=== PATIENT | male | born 1945 | race Caucasian/White ===

== ENCOUNTER 2017-02-27 21:18 | Inpatient (IN) | payer OTHER ==
[~2017-02-27] VITALS: Ht 180.3 cm; Wt 78.2 kg
--- NOTE | 2017-02-27 23:25 | DIAGNOSTIC IMAGING REPORT ---
PROCEDURE: XR HIP 2VW W W/O AP PELVIS-LT INDICATION: TRAUMA/INJURY TECHNIQUE: AP view of the pelvis and hips with lateral view of the left hip. COMPARISON: None. FINDINGS: LEFT HIP: Normal mineralization. Impacted, mildly comminuted femoral neck fracture resulting in varus deformity of the hip. Femoral acetabular joint remains in anatomic position. Mild to moderate degenerative sclerosis and cystic changes to the acetabulum. Vascular phleboliths are present. PELVIS: Normal mineralization. No pelvic fracture. Normal bony alignment. Moderate degenerative disc change at L5-S1. Mild degenerative right hip osteoarthritic change. Vascular phleboliths present. Normal soft tissues. IMPRESSION: 1. Left femoral neck fracture resulting and left hip varus deformity. 2. 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
--- NOTE | 2017-02-27 23:28 | DIAGNOSTIC IMAGING REPORT ---
PROCEDURE: XR CHEST 1 VIEW INDICATION: Fall, left hip fracture TECHNIQUE: Single view chest. 2259 hours COMPARISON: None FINDINGS: Normal heart size and mediastinum. No central venous congestion. Clear lungs. No effusion or pneumothorax. Intact osseous structures with mild degenerative change. There is a vascular stent in the right upper quadrant, potentially a TIPS shunt. Partially imaged metallic coils are present in the region of the GE junction, probably coiled varices. IMPRESSION: 1. No acute cardiopulmonary disease. 2. Findings suggestive of TIPS shunt and previous esophageal varicosity coiling, together implying hepatic cirrhosis and portal hypertension.
[2017-02-28] VITALS (11 sets, daily range): BP systolic 139–155; BP diastolic 47–75
--- NOTE | 2017-02-28 00:05 | ED CLINICAL REPORT ---
Clinical Report - Physicians/Mid Levels [facility] [address] [place] [address] 02/27/2017 21:20 Patient: SANDRA PRICE Time Seen: 22:22. Arrived- By private vehicle. Historian- patient. HISTORY OF PRESENT ILLNESS Location of injuries- left hip. Chief Complaint: FALL. The injury occurred today. Fell. Occurred at home. ( the patient was trying to empty a elias from an air-conditioner. He spilled some water accidentally slipped and fell landing on his left hip. He had pain there and was not able to get up. An ambulance was called and the medics assisted him into his bed. He later rolled out of his bed and again the floor. He reports severe pain in his left hip and says that he is not able to stand on as he usually would. Normally he walks with a cane or a walker.). The patient complains of severe pain. No blow to the head, neck pain or loss of consciousness. REVIEW OF SYSTEMS No chills, fever, sweats, calf pain or chest pain. No cough, difficulty breathing, pedal edema, palpitations or abdominal pain. No constipation, diarrhea, nausea or urinary problems. All systems otherwise negative, except as recorded above. PAST HISTORY Recovered alcoholic with a prior history of ascites and subsequent TIPS he placement. Problems: Hypertension. Alcoholic Liver Disease. Neuropathy. Additional Surgeries: Tips procedure. Medications: Thiamine HCl Oral (Tablet 100 mg) 1 tablet, Daily. Folic Acid Oral (Tablet 1 mg) 1 tablet, daily. Magnesium Oral (Capsule 400 mg) 2 capsules, 2x a day. Cipro Oral (Tablet 500 mg) 1 tablet, daily. Tamsulosin HCl Oral (Capsule 0.4 mg) 1 capsule, daily. Simethicone Oral (Tablet Chewable 80 mg) 1 tablet, tid. Xifaxan Oral (Tablet 550 mg) 1 tablet, BID. Gabapentin Oral (Capsule 300 mg) 1 capsule, at bedtime. Pantoprazole Sodium Oral (Tablet Delayed Release 40 mg) 1 tablet, 2x a day. Allergies: Ampicillin. Definite Severe(rash) Diovan. Definite Severe(rash). SOCIAL HISTORY Never smoker. Alcohol use. Last drink was 5 years ago. Patient is a recovering alcoholic. No drug use. He lives with spouse. Has good social support. FAMILY HISTORY Denies family medical history. ADDITIONAL NOTES The nursing notes have been reviewed. PHYSICAL EXAM Vital Signs: 02/27/2017 21:26 BP: 152/63. HR: 81. RR: 18. O2 saturation: 96%. Temp: 98.5 F. Pain level now: 04/14. Have been reviewed. Appearance: Alert. Head: Head non-tender. No swelling of head. Eyes: Pupils equal, round and reactive to light. ENT: Pharynx normal. Neck: Painless ROM. Non-tender. CVS: Heart sounds normal. Respiratory: Breath sounds normal. Abdomen: Soft and nontender. Bowel sounds normal. No organomegaly. No mass. Back: No tenderness. Skin: Skin warm and dry. Extremities: Left hip: moderate tenderness. Limited ROM secondary to pain (diminished flexion, extension and external and internal rotation). LABS, X-RAYS, AND EKG EKG: Normal EKG. Rate: 69. Prior EKG unavailable. The study has been independently viewed by me. Chest X-ray: (IMPRESSION: 1. No acute cardiopulmonary disease. 2. Findings suggestive of TIPS shunt and previous esophageal varicosity coiling, together implying hepatic cirrhosis and portal hypertension.). The X-rays were interpreted by the radiologist and contemporaneously by me. Laboratory Tests: UA-Culture if indicated: (ANU: 02/27/2017 22:38) ( MsgRcvd 02/27/2017 22:59) Final results Test Result Flag Units (Reference) URINE COLOR YELLOW URINE APPEARANCE CLEAR URINE GLUCOSE NEGATIVE (NEGATIVE) URINE BILIRUBIN NEGATIVE (NEGATIVE) URINE KETONE NEGATIVE (NEGATIVE) URINE SPECIFIC GRAVITY 1.015 (1.010-1.030) URINE PH 6.5 (5.0-8.0) URINE PROTEIN NEGATIVE (NEGATIVE) URINE UROBILINOGEN 0.2 EU/dL (0.2-1.0) URINE NITRITE NEGATIVE (NEGATIVE) URINE BLOOD NEGATIVE (NEGATIVE) URINE LEUK ESTERASE NEGATIVE (NEGATIVE) URINE RBC 0-1 rbc/hpf (0-1) URINE WBC 0-1 wbc/hpf (0-1) URINE EPITHELIAL CELLS 0-1 EPI/hpf (0-5) URINE BACTERIA NONE SEEN (NONE SEEN) URINE COMMENT CULT NOT INDICATED URINE CULTURES ARE SET-UP BASED ON THE FOLLOWING CRITERIA:POSITIVE NITRITEPOSITIVE LEUKOCYTE ESTERASEGREATER THAN 10 WHITE BLOOD CELLSMODERATE (2+) OR GREATER BACTERIA CBC w Diff: (ANU: 02/27/2017 22:38) ( [facility] 02/27/2017 22:51) Final results Test Result Flag Units (Reference) WHITE BLOOD COUNT 7.7 K/uL (4.5-11.5) RED BLOOD COUNT 3.45 L M/uL (4.50-5.90) HEMOGLOBIN 11.4 L gm/dL (13.5-17.5) HEMATOCRIT 34.2 L % (41.0-53.0) MEAN CELL VOLUME 99 fL (80-100) MEAN CORPUSCULAR HGB 33 pg (26-34) MEAN CORPUSCULAR HGB CONC 33 g/dL (31-37) RED CELL DISTRIBUTION WIDTH 15.9 H % (11.6-14.8) PLATELET COUNT 132 L K/uL (150-400) LYMPH % 23.2 L % (25-40) MONO % 3.8 % (3-14) GRANULOCYTE % 73.0 PT with INR: (ANU: 02/27/2017 22:38) ( [facility] 02/27/2017 23:00) Final results Test Result Flag Units (Reference) INR 1.2 (0.8-1.2) Low Intensity Therapy: INR 1.5-2.0 PT range 18.5-23.1Mod.Intensity Therapy: INR 2.0-3.0 PT range 23.1-31.5High Intensity Therapy: INR 2.5-3.5 PT range 27.4-35.5High Intensity Therapy 2: INR 3.0-4.0 PT range 31.5-39.3 APTT 34 SECONDS (24-34) CMP: (ANU: 02/27/2017 22:38) ( [facility] 02/27/2017 23:01) Final results Test Result Flag Units (Reference) GLUCOSE 113 H mg/dL (70-110) BUN 21 H mg/dL (7-18) CREATININE 1.1 mg/dL (0.6-1.3) Estimated GFR >60 mL/min Estimated GFR- >60 mL/min Note: Persistent reduction over 3 months in eGFR<60 mL/min/1.73 m2 defines CKD. Patients with eGFR values>=60 mL/min/1.73 m2 may also have CKD if evidence ofpersistent proteinuria. Additional information may be foundat www.kidney.org. SODIUM 145 mmol/L (136-145) POTASSIUM 4.3 mmol/L (3.5-5.1) CHLORIDE 106 mmol/L (98-107) CARBON DIOXIDE 30 mmol/L (21-32) CALCIUM 9.3 mg/dL (8.5-10.1) TOTAL PROTEIN 6.4 g/dL (6.4-8.2) ALBUMIN 3.1 L g/dL (3.3-5.0) BILIRUBIN, TOTAL 1.9 H mg/dL (0.0-1.0) ALKALINE PHOSPHATASE 101 U/L (46-116) AST (SGOT) 61 H U/L (15-37) ALT (SGPT) 39 U/L (12-78) LIPASE 54 L U/L (73-393) AMYLASE 29 U/L (25-115) . PROGRESS AND PROCEDURES Discussed case with hospitalist, (Alexandra). Reviewed test results and need for additional work-up. Agreed upon treatment plan, need for patient follow-up and decision to admit. Consult obtained from orthopedics. Dr. Boogie. Case discussed. Consultation performed in ED. Old medical records ordered. Old records unavailable. Disposition: Admitted. CLINICAL IMPRESSION Fracture of the neck of the left femur. Fall. (Electronically signed by Mohan Millan MD 02/28/2017 11:23)
--- NOTE | 2017-02-28 00:06 | ED NURSING NOTES ---
Clinical Report - Nurses [facility] [address] [place] [address] 02/27/2017 21:20 Patient: SANDRA PRICE TRIAGE Triage time 21:27. Acuity: LEVEL 3. Chief Complaint: FALL OUT OF BED, onto a hard surface and landed on their back. --21:41 Josefina Summers R.N. 21:26 02/27/17. BP: 152/63 taken on the left arm, while lying. HR: 81 (regular and normal rate). RR: 18 (regular and unlabored). O2 saturation: 96% on room air. Temp: 98.5 F (oral). Pain level now: 04/14. --21:41 Josefina Summers R.N. Weight: 70.3 kg stated. Height/Length: 71 inches Per Patient. BMI: 21.6. --21:29 Josefina Summers R.N. Medications Pantoprazole Sodium Oral (Tablet Delayed Release 40 mg) 1 tablet, 2x a day. --21:35 Josefina Summers R.N. Gabapentin Oral (Capsule 300 mg) 1 capsule, at bedtime. --21:36 Josefina Summers R.N. Xifaxan Oral (Tablet 550 mg) 1 tablet, BID. --21:36 Josefina Summers R.N. Simethicone Oral (Tablet Chewable 80 mg) 1 tablet, tid. --21:36 Josefina Summers R.N. Tamsulosin HCl Oral (Capsule 0.4 mg) 1 capsule, daily. --21:36 Josefina Summers R.N. Cipro Oral (Tablet 500 mg) 1 tablet, daily. --21:36 Josefina Summers R.N. Magnesium Oral (Capsule 400 mg) 2 capsules, 2x a day. --21:37 Josefina Summers R.N. Folic Acid Oral (Tablet 1 mg) 1 tablet, daily. --21:37 Melina, Josefina, R.N. Thiamine HCl Oral (Tablet 100 mg) 1 tablet, Daily. --21:37 Josefina Summers R.N. Allergies Ampicillin. Definite Severe(rash) --21:38 Josefina Summers R.N. Diovan. Definite Severe(rash) --21:38 Josefina Summers R.N. History Arrived by EMS. Historian: patient. Location of injuries: left hip. This occurred (about 2 hours ago). ( pt reports falling out of bed 2 times today 2 nd time being 2 hours ago, c/o pain to left hip and leg). He has had trouble walking. The patient has been unable to walk. He uses a walker and cane. Treatment [facility]: None. PAST MEDICAL HX: Tetanus status: unknown. Immunizations: up-to-date. SOCIAL HX: Never smoker. Alcohol use. Last drink was 5 years ago. Patient is a recovering alcoholic. No drug use. No infectious disease exposure. ABUSE ASSESSMENT: No report of abuse. SELF HARM ASSESSMENT: A self harm assessment was performed. The patient answered "no" to the question "Have you recently felt down, depressed, or hopeless?", "Have you noticed less interest or pleasure in doing things?", "Do you have thoughts of harming or killing yourself?", "Are you here because you tried to hurt yourself?", "Have you ever tried to hurt yourself before today?", "Have you recently had thoughts about harming or killing others?" and "Do you have any dangerous items in your possession?". NUTRITIONAL RISK ASSESSMENT: The nutritional risk assessment revealed no deficiencies. FUNCTIONAL ASSESSMENT: Functional assessment: no impairments noted. LEARNING NEEDS ASSESSMENT: The learning needs assessment revealed no barriers. FALL RISK ASSESSMENT: Fall risk assessment completed. Risk factors identified include patient age greater than 65 years and history of fall. SKIN INTEGRITY ASSESSMENT: Skin integrity risk assessment completed. No skin integrity risk identified. --21:41 Josefina Summers R.N. PROBLEMS: Hypertension. Alcoholic Liver Disease. Neuropathy. --21:39 Josefina Summers R.N. ADDITIONAL SURGERIES: Tips procedure. --21:39 Josefina Summers R.N. Interventions ID band on patient. To treatment room. --21:41 Josefina Summers R.N. PHYSICAL ASSESSMENT To room via stretcher. GENERAL / NEURO / PSYCH: Alert. Oriented X 4. Appears in pain. HEENT: Pupils equal, round and reactive to light. Head non-tender. RESPIRATORY: Respirations not labored. Chest nontender. Breath sounds within normal limits. CVS: Normal heart rate and rhythm. Pulses within normal limits. Capillary refill less than 2 seconds. GI / : Abdomen soft and nontender. EXTREMITIES: Limited ROM present in the left lower leg. He was unable to bear weight. (left lower ext). Left hip. Limited ROM secondary to pain. The left leg is externally rotated. SKIN: Skin intact. Skin is warm and dry. --21:42 Josefina Summers R.N. NURSING PROGRESS NOTES Two patient identifiers checked. Call light placed in reach. Side rails up x 2. Bed placed in lowest position. Brakes of bed on. Patient ready for evaluation- chart flagged. --21:42 Josefina Summers R.N. 22:38 02/27/2017 Site #1 started via IV in the right antecubital space with an 20g angiocath, with aseptic technique and good blood return; one attempt. Blood drawn: rainbow set. Labeled in the presence of the patient and sent to the lab. Saline lock flushed with 10 mL saline. --22:44 Josefina Summers R.N. ( pt transported back from [facility] by [facility]). --23:09 [facility] 00:16 02/28/2017 Zofran (Ondansetron HCl) IVP 4 mg given over 2 minute(s) via site #1. Allergies verified and confirmed 5 rights. IV patency established. IV site checked: no pain, redness, or swelling. IV flushed thoroughly pre- and post-medication administration. --00:21 Angel Robles R.N. 00:18 02/28/2017 Dilaudid (HYDROmorphone HCl PF) IVP 0.5 mg given over 2 minute(s) via site #1. Allergies verified, confirmed 5 rights and sedative warning given to the patient and patient's family. IV patency established. IV site checked: no pain, redness, or swelling. IV flushed thoroughly pre- and post-medication administration. --00:21 Angel Robles R.N. 00:21 02/28/17. BP: 132/45. HR: 71. RR: 17. O2 saturation: 87%. --00:23 Angel Robles R.N. 00:21. Pulse oximeter and NIBP monitor placed on patient; monitor alarms on. --00:23 Angel Robles R.N. 00:23. Oxygen administered by nasal cannula at 3 liters. --00:24 Angel Robles R.N. 00:24 02/28/17. O2 saturation: 97% on nasal cannula at 3 liters/minute. --00:24 Angel Robles R.N. Overall patient status is improved- he states feels better. GENERAL / NEURO / PSYCH: The patient reports pain that is located in the pelvis area and left hip is still present but improving and currently mild in severity. Alert. Oriented X 4. RESPIRATORY: No respiratory distress. Two patient identifiers checked. Call light placed in reach. Side rails up x 1. Bed placed in lowest position. Brakes of bed on. --00:52 Josefina Summers R.N. 00:51 02/28/17. BP: 111/63 taken on the left arm, while lying. HR: 101 (regular and tachycardic). RR: 18 (regular and unlabored). O2 saturation: 96% on nasal cannula at 3 liters/minute. Temp: deferred. Pain level now: 4/10. --00:52 Josefina Summers R.N. EKG time: (00:49). EKG was performed by a tech and shown to the ED physician. --00:54 Sarah Jamison 02:47 02/28/2017 IV Saline Lock Drip IV Continued: upon admission at the rate of 0 mL/hr. 0 mL remaining. IV patency established. IV site checked: no pain, redness, or swelling. IV flushed thoroughly. --02:47 Josefina Summers R.N. 02:48 02/28/2017 Site #[address] upon admission; patent, no pain and no signs of infection or infiltration. Good blood return present. Flushed with 10 mL saline; flushes easily. --02:48 Josefina Summers R.N. DISPOSITION / DISCHARGE Departure time: 02:52. Transported via stretcher by nurse with IV. Report was given to a nurse via a phone call. Report included patient's care, treatment, medications, reviewed medication reconcilliation, and condition (including any recent changes or anticipated changes). All questions were answered. Report was acknowledged and care was transferred. (Josie RN @[phone]). Patient's personal items; items were placed in belongings bag and transported with the patient. --02:53 Josefina Summers R.N. 02:49 02/28/17. BP: 131/86 taken on the left arm, while lying. HR: 66 (regular and normal rate). RR: 18. O2 saturation: 100% on nasal cannula at 3 liters/minute. Temp: deferred. Pain level now: 0/10. --02:53 Josefina Summers R.N. Locked/Released at 02/28/2017 2:53 by Josefina Summers R.N.
--- NOTE | 2017-02-28 00:06 | ED ORDER SUMMARY ---
..... Patient: SANDRA PRICE OrderSheet [facility] VisitID: [id number] [place] [address] 72y, M Registration Date/Time: 02/27/2017 ORDER SHEET Weight: 70.3 kg (stated) Allergies: Ampicillin, Diovan GENERAL ORDERS: Hip 2V Left w AP Pelvis Urgent (22:28 02/27/2017 Kenyetta GARCIA) (Ack 22:30 [facility] [employer] [facility]) (23:08 Lee Ann) Chest 1V Urgent (22:28 02/27/2017 Kenyetta GARCIA) (Ack 22:30 [facility] [employer]) (23:08 Lee Ann) CBC w Diff Urgent (22:29 02/27/2017 Kenyetta GARCIA) (Ack 22:30 [facility] [employer]) (22:44 CBradburn R.N.) CMP Urgent (22:29 02/27/2017 Kenyetta GARCIA) (Ack 22:30 [facility] [employer]) (22:44 CBradburn R.N.) PT with INR Urgent (22:29 02/27/2017 Kenyetta GARCIA) (Ack 22:30 [facility] [employer]) (22:44 CBradburn R.N.) PTT Urgent (22:29 02/27/2017 Kenyetta GARCIA) (Ack 22:30 [facility] [employer]) (22:44 CBradburn R.N.) UA-Culture if indicated Urgent (22:29 02/27/2017 Kenyetta GARCIA) (Ack 22:30 [facility] [employer]) (22:44 CBradburn R.N.) Amylase Urgent (22:29 02/27/2017 Kenyetta GARCIA) (Ack 22:30 [facility] [employer]) (22:44 CBradburn R.N.) Lipase Urgent (22:29 02/27/2017 Kenyetta GARCIA) (Ack 22:30 [facility] [employer]) (22:44 CBradburn R.N.) Ammonia Level Urgent (00:09 02/28/2017 Kenyetta GARCIA) (Ack 0:10 CHagyordy [facility] [employer] Maker) (1:18 CBradburn R.N.) EKG - ER Stat (00:36 02/28/2017 Kenyetta GARCIA) (0:53 RKaruga) MEDICATION ORDERS: IV FLUIDS: IV Saline Lock (22:29 02/27/2017 Kenyetta GARCIA) (22:44 Aj R.N.) Dilaudid IV 0.5 mg (HIGH ALERT MEDICATION, NOW) (00:14 02/28/2017 Kenyetta GARCIA) (0:21 Therese R.N.) Zofran IV 4 mg (NOW) (00:15 02/28/2017 Kenyetta GARCIA) (0:21 JQuivedoroteo R.N.) ORDER SHEET NOTES: [Electronically signed by Josefina Summers R.N. (02:53 02/28/2017)] [Electronically signed by Mohan Millan MD (11:23 02/28/2017)] [Electronically locked/signed by Josefina Summers R.N. (02:53 02/28/2017)]
--- NOTE | 2017-02-28 00:06 | ED ORDER SUMMARY ---
..... Patient: SANDRA PRICE OrderSheet [facility] VisitID: [id number] [place] [address] 72y, M Registration Date/Time: 02/27/2017 ORDER SHEET Weight: 70.3 kg (stated) Allergies: Ampicillin, Diovan GENERAL ORDERS: Hip 2V Left w AP Pelvis Urgent (22:28 02/27/2017 Kenyetta GARCIA) (Ack 22:30 [facility] [employer]) (23:08 Lee Ann) Chest 1V Urgent (22:28 02/27/2017 Kenyetta GARCIA) (Ack 22:30 [facility] [employer]) (23:08 Lee Ann) CBC w Diff Urgent (22:29 02/27/2017 Kenyetta GARCIA) (Ack 22:30 [facility] [employer]) (22:44 CBradburn R.N.) CMP Urgent (22:29 02/27/2017 Kenyetta GARCIA) (Ack 22:30 [facility] [employer]) (22:44 CBradburn R.N.) PT with INR Urgent (22:29 02/27/2017 Kenyetta GARCIA) (Ack 22:30 [facility] [employer]) (22:44 CBradburn R.N.) PTT Urgent (22:29 02/27/2017 Kenyetta GARCIA) (Ack 22:30 [facility] [employer]) (22:44 CBradburn R.N.) UA-Culture if indicated Urgent (22:29 02/27/2017 Kenyetta GARCIA) (Ack 22:30 [facility] [employer]) (22:44 CBradburn R.N.) Amylase Urgent (22:29 02/27/2017 Kenyetta GARCIA) (Ack 22:30 [facility]ette [facility] [employer]) (22:44 CBradburn R.N.) Lipase Urgent (22:29 02/27/2017 Kenyetta GARCIA) (Ack 22:30 [facility]ette [facility] [employer]) (22:44 CBradburn R.N.) Ammonia Level Urgent (00:09 02/28/2017 Kenyetta GARCIA) (Ack 0:10 CHag[place]y [facility] [employer]) (1:18 CBradburn R.N.) EKG - ER Stat (00:36 02/28/2017 Kenyetta GARCIA) (0:53 RKaruga) MEDICATION ORDERS: IV FLUIDS: IV Saline Lock (22:29 02/27/2017 Kenyetta GARCIA) (22:44 Aj R.N.) Dilaudid IV 0.5 mg (HIGH ALERT MEDICATION, NOW) (00:14 02/28/2017 Kenyetta GARCIA) (0:21 Therese R.N.) Zofran IV 4 mg (NOW) (00:15 02/28/2017 Kenyetta GARCIA) (0:21 JQuivedoroteo R.N.) ORDER SHEET NOTES: [Electronically signed by Josefina Summers R.N. (02:53 02/28/2017)] [Electronically signed by Mohan Millan MD (11:23 02/28/2017)] [Electronically locked/signed by Josefina Summers R.N. (02:53 02/28/2017)]
--- NOTE | 2017-02-28 01:39 | Progress Note ---
Subjective General Admission History and Physical Examination Patient Name: Kofi Burnett Admission Date: February 28, 2017 Primary Care Provider: [facility] Attending Physician: Riccardo Beaver M.D. Admitting Physician: Jesu Morris M.D. Director Strategic Planning: Fredrick Boogie M.D. Code Status: NO CODE Room: [facility] Status: Inpatient, ACU SUBJECTIVE Historian: Patient and friend Reliability: Fair Chief Complaint: Left hip pain History of Present Illness: The patient is a 72-year-old white male with a significant past medical history of alcoholic cirrhosis, gastroesophageal reflux, alcoholic polyneuropathy, hypertension, BPH, who presented to [facility] emergency department on the day of admission secondary to complaints of fall with left hip pain. [facility] ER evaluation was consistent with subtrochanteric fracture left hip. Dr. Fredrick Boogie ( orthopedics) was contacted and requested the patient be admitted by the hospitalist service. Secondary to the above, the patient was admitted by Jesu Morris M.D. for further evaluation and treatment. The history of present illness began on the day of admission when the patient apparently slipped in some liquid falling on his left hip. He was apparently placed back in bed and fell out of bed later in the day prompting ER evaluation secondary to inability to ambulate and left hip pain. [facility] ER evaluation was consistent with left hip fracture. Orthopedics was consult and and requested that the patient be admitted by the hospitalist service with orthopedic consultation. Secondary to the above, the patient was admitted by Jesu Morris M.D. for further evaluation and treatment. The patient denied any history of syncope, loss of consciousness prior to his falls. No recent history of chest pain, palpitations, shortness of breath. PAST MEDICAL HISTORY Illnesses: 1. Alcoholic cirrhosis 2. Alcohol peripheral neuropathy 3. Gastroesophageal reflux 4. Hypertension 5. BPH 6. Atopic dermatitis Allergies: 1. Prednisone 2. Diovan Medications: 1. Protonix 40 mg 1 by mouth daily 2. Gabapentin 300 mg by mouth daily 3. Rifaximin 550 mg by mouth 3 times a day 4. Simethicone 80 mg by mouth 3 times a day 5. Flomax 0.4 mg by mouth daily 6. Ciprofloxacin 500 mg by mouth daily 7. Magnesium oxide 400 mg 1 by mouth twice a day 8. Folic acid 1 mg by mouth daily 9. Thiamine 100 mg by mouth daily 10. Eucerin cream topically twice a day to affected skin Surgery: 1. 2013, TIPS procedure 2. 2011, left ankle fracture Injuries: 1. 2011, left leg fracture Hospitalizations: 1. For above surgery and medical problems FAMILY HISTORY Parents: 1. Father, , 87, "old age", 2. Mother, , 87, "old age" Siblings: 1. The patient has 2 male siblings one with history of diabetes mellitus for with history of fractured neck Children: 1. The patient has 2 female children both of which are in good health Other significant family history: None SOCIAL HISTORY 1. Marital Status: Single-other 2. Orthodoxy: Latter Day-Sikh 3. Education: High school, 2 years of college 4. Employment History: , retired-[employer], [employer] 5. Occupational health exposures: Loud noises, heavy lifting HABITS 1. Tobacco: None 2. Drugs: None 3. Alcohol: History of alcoholism, nondrinker many years 4. Caffeine: Coffee 3 cups per day HEALTH SUPERVISION Item/Test 1. Vision screen: 2015 2. Cholesterol Profile: 2016 3. PSA: Unknown 4. MULU: Unknown 5. FOBT: 2016 6. Blood Glucose: 2016 7. Colonoscopy: Unknown 8. History and physical exam: Unknown 9. Audiogram: 2015 10. Mammogram: Not applicable 11. Pap/pelvic exam: Not applicable IMMUNIZATIONS: 1. Pneumococcal: 2014 2. Influenza: 2015 3. Tetanus: Unknown ADVANCED DIRECTIVES: 1. Living well: No 2. POLST: No 3. Code Status: NO CODE 4. Durable Power Studio Director Health care: Yes 5. Donor card: No REVIEW OF SYSTEMS Remarkable for those things stated in the history of present illness and past medical history. Seventeen point review of system completed with the following notable findings: General: Abdominal pain, weakness Skin, atopic dermatitis Eyes: Decreased visual acuity requiring corrective lenses Ears: Hearing loss, lateral hearing aids Mouth: Dental problems Cardiovascular: Hypertension, pain with ambulation Genitourinary: Poor urinary stream, erectile dysfunction Gastrointestinal: Loss of appetite, gastroesophageal reflux, heartburn, constipation Musculoskeletal: Joint stiffness Psychological: Depression Physical Exam Vital Signs / I&Os Blood pressure: 152/63 mmHg Heart rate: 81/minute Respiratory rate: 18/minute Temperature: 98.5 Fahrenheit orally Pulse oximetry: 96% room air General Appearance Cooperative, No acute distress HEENT Atraumatic, PERRLA, EOMI, Moist mucous membranes Lungs Clear to auscultation, Normal air movement Neck Supple, No JVD, No masses, No thyromegaly, No lymphadenopathy Cardiovascular Regular rate and rhythm, Normal S1 and S2, No murmurs, gallops, rubs Abdomen Normal bowel sounds, Soft, No tenderness, No guarding Extremities No cyanosis, No clubbing, Normal pulses Skin Dermatitis present Neurological Cranial nerves intact, Strength 5/5 x4 ext's, No lateralizing signs Psych/Mental Status Mood normal, slightly lethrgic LAB Results Laboratory Tests 02/28 02/27 0055 2238 Chemistry Plasma Sodium (136 - 145 mmol/L) 145 Plasma Potassium (3.5 - 5.1 mmol/L) 4.3 Plasma Chloride (98 - 107 mmol/L) 106 CO2 (Enzymatic) (21 - 32 mmol/L) 30 BUN (7 - 18 mg/dL) 21 Creatinine (0.6 - 1.3 mg/dL) 1.1 Est GFR ( Amer) (mL/min) >60 Est GFR (Non-Af Amer) (mL/min) >60 Glucose (70 - 110 mg/dL) 113 Plasma Calcium (8.5 - 10.1 mg/dL) 9.3 Total Bilirubin (0.0 - 1.0 mg/dL) 1.9 AST (15 - 37 U/L) 61 ALT (12 - 78 U/L) 39 Alkaline Phosphatase (46 - 116 U/L) 101 Ammonia Pending Total Protein (6.4 - 8.2 g/dL) 6.4 Albumin (3.3 - 5.0 g/dL) 3.1 Amylase (25 - 115 U/L) 29 Lipase (73 - 393 U/L) 54 Coagulation INR (0.8 - 1.2) 1.2 APTT (24 - 34 SECONDS) 34 Hematology WBC (4.5 - 11.5 K/uL) 7.7 RBC (4.50 - 5.90 M/uL) 3.45 Hgb (13.5 - 17.5 gm/dL) 11.4 Hct (41.0 - 53.0 %) 34.2 MCV (80 - 100 fL) 99 MCH (26 - 34 pg) 33 RDW (11.6 - 14.8 %) 15.9 Gran % 73.0 Lymph % (Auto) (25 - 40 %) 23.2 [place] % (Auto) (3 - 14 %) 3.8 Plt Count, EDTA (150 - 400 K/uL) 132 PUBS MCHC (31 - 37 g/dL) 33 Urines Urine Color YELLOW Urine Appearance CLEAR Urine pH (5.0 - 8.0) 6.5 Ur Specific [place] (1.010 - 1.030) 1.015 Urine Protein (NEGATIVE) NEGATIVE Urine Ketones (NEGATIVE) NEGATIVE Urine Blood (NEGATIVE) NEGATIVE Urine Nitrite (NEGATIVE) NEGATIVE Urine Bilirubin (NEGATIVE) NEGATIVE Urine Urobilinogen (0.2 - 1.0 EU/dL) 0.2 Ur Leukocyte Esterase (NEGATIVE) NEGATIVE Urine RBC (0 - 1 rbc/hpf) 0-1 Urine WBC (0 - 1 wbc/hpf) 0-1 Ur Epithelial Cells (0 - 5 EPI/hpf) 0-1 Urine Bacteria (NONE SEEN) NONE SEEN Urine Glucose (NEGATIVE) NEGATIVE Urine Comment CULT NOT INDICATED Imaging Chest X-Ray IMPRESSION: 1. No acute cardiopulmonary disease. 2. Findings suggestive of TIPS shunt and previous esophageal varicosity coiling, together implying hepatic cirrhosis and portal hypertension. Dictated by: RAMIRO MCGINNIS MD D: SOTERO;02/27/17 1624 Hip X-Ray IMPRESSION: 1. Left femoral neck fracture resulting and left hip varus deformity. 2. 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 Dictated by: RAMIRO MCGINNIS MD D: SOTERO;02/27/17 0376 Assessment and Plan Problem List 1. Fracture of femoral neck, left Status Acute Onset Date 02/27/17 Plan -The patient presents with femoral neck fracture left side -Follow per orthopedics -Dr. Fredrick Boogie consulted-see his consultation note 2. Alcoholic cirrhosis of liver Status Chronic Onset Date Unknown Plan -Patient with history of alcoholic cirrhosis -Status post TIPS procedure -Overall status stable recently -Ammonia level slightly elevated -Continue rifaximin consider addition of lactulose if necessary -No overt evidence of hepatic encephalopathy at this time -Monitor 3. BPH (benign prostatic hyperplasia) Status Chronic Onset Date Unknown Plan -Patient with history of BPH -No complaints at this time -Continue Flomax 0.4 mg by mouth daily -Monitor for urinary retention 4. Alcoholic peripheral neuropathy Status Chronic Onset Date Unknown Plan -Long-standing history of alcoholic polyneuropathy -Continue gabapentin 300 mg by mouth daily at bedtime -Monitor 5. Gastroesophageal reflux Status Chronic Onset Date Unknown Plan -Patient with history of gastroesophageal reflux -Pepcid 20 mg IV twice a day -Monitor Current status: Fair, unstable Anticipated discharge date: Anticipated discharge 4-5 days Anticipated discharge placement: [facility] facility Patient care time: Time in chart review, patient interview, physical exam, CPOE, and care documentation: 70 mins Visit to patient today: 2 Complexity of care: High DVT prophylaxis: Heparin 5000 units subcutaneous 3 times a day GI prophylaxis: Pepcid 20 mg IV twice a day E&M Codes Admission: Inpt-High/88115
--- NOTE | 2017-02-28 01:39 | Progress Note ---
Subjective General Admission History and Physical Examination Patient Name: Kofi Burnett Admission Date: February 28, 2017 Primary Care Provider: [facility] Attending Physician: Riccardo Beaver M.D. Admitting Physician: Jesu Morris M.D. Rodding Machine Tender: Fredrick Boogie M.D. Code Status: NO CODE Room: [facility] Status: Inpatient, ACU SUBJECTIVE Historian: Patient and friend Reliability: Fair Chief Complaint: Left hip pain History of Present Illness: The patient is a 72-year-old white male with a significant past medical history of alcoholic cirrhosis, gastroesophageal reflux, alcoholic polyneuropathy, hypertension, BPH, who presented to [facility] emergency department on the day of admission secondary to complaints of fall with left hip pain. [facility] ER evaluation was consistent with subtrochanteric fracture left hip. Dr. Fredrick Boogie ( orthopedics) was contacted and requested the patient be admitted by the hospitalist service. Secondary to the above, the patient was admitted by Jesu Morris M.D. for further evaluation and treatment. The history of present illness began on the day of admission when the patient apparently slipped in some liquid falling on his left hip. He was apparently placed back in bed and fell out of bed later in the day prompting ER evaluation secondary to inability to ambulate and left hip pain. [facility] ER evaluation was consistent with left hip fracture. Orthopedics was consult and and requested that the patient be admitted by the hospitalist service with orthopedic consultation. Secondary to the above, the patient was admitted by Jesu Morris M.D. for further evaluation and treatment. The patient denied any history of syncope, loss of consciousness prior to his falls. No recent history of chest pain, palpitations, shortness of breath. PAST MEDICAL HISTORY Illnesses: 1. Alcoholic cirrhosis 2. Alcohol peripheral neuropathy 3. Gastroesophageal reflux 4. Hypertension 5. BPH 6. Atopic dermatitis Allergies: 1. Prednisone 2. Diovan Medications: 1. Protonix 40 mg 1 by mouth daily 2. Gabapentin 300 mg by mouth daily 3. Rifaximin 550 mg by mouth 3 times a day 4. Simethicone 80 mg by mouth 3 times a day 5. Flomax 0.4 mg by mouth daily 6. Ciprofloxacin 500 mg by mouth daily 7. Magnesium oxide 400 mg 1 by mouth twice a day 8. Folic acid 1 mg by mouth daily 9. Thiamine 100 mg by mouth daily 10. Eucerin cream topically twice a day to affected skin Surgery: 1. 2013, TIPS procedure 2. 2011, left ankle fracture Injuries: 1. 2011, left leg fracture Hospitalizations: 1. For above surgery and medical problems FAMILY HISTORY Parents: 1. Father, , 87, "old age", 2. Mother, , 87, "old age" Siblings: 1. The patient has 2 male siblings one with history of diabetes mellitus for with history of fractured neck Children: 1. The patient has 2 female children both of which are in good health Other significant family history: None SOCIAL HISTORY 1. Marital Status: Single-other 2. Baptism: [employer]ze-[employer]ar[employer] 3. Education: High school, 2 years of college 4. Employment History: , retired-[employer], [employer] 5. Occupational health exposures: Loud noises, heavy lifting HABITS 1. Tobacco: None 2. Drugs: None 3. Alcohol: History of alcoholism, nondrinker many years 4. Caffeine: Coffee 3 cups per day HEALTH SUPERVISION Item/Test 1. Vision screen: 2015 2. Cholesterol Profile: 2016 3. PSA: Unknown 4. MULU: Unknown 5. FOBT: 2016 6. Blood Glucose: 2016 7. Colonoscopy: Unknown 8. History and physical exam: Unknown 9. Audiogram: 2015 10. Mammogram: Not applicable 11. Pap/pelvic exam: Not applicable IMMUNIZATIONS: 1. Pneumococcal: 2014 2. Influenza: 2015 3. Tetanus: Unknown ADVANCED DIRECTIVES: 1. Living well: No 2. POLST: No 3. Code Status: NO CODE 4. Durable Power Certified Nursing Assistant Health care: Yes 5. Donor card: No REVIEW OF SYSTEMS Remarkable for those things stated in the history of present illness and past medical history. Seventeen point review of system completed with the following notable findings: General: Abdominal pain, weakness Skin, atopic dermatitis Eyes: Decreased visual acuity requiring corrective lenses Ears: Hearing loss, lateral hearing aids Mouth: Dental problems Cardiovascular: Hypertension, pain with ambulation Genitourinary: Poor urinary stream, erectile dysfunction Gastrointestinal: Loss of appetite, gastroesophageal reflux, heartburn, constipation Musculoskeletal: Joint stiffness Psychological: Depression Physical Exam Vital Signs / I&Os Blood pressure: 152/63 mmHg Heart rate: 81/minute Respiratory rate: 18/minute Temperature: 98.5 Fahrenheit orally Pulse oximetry: 96% room air General Appearance Cooperative, No acute distress HEENT Atraumatic, PERRLA, EOMI, Moist mucous membranes Lungs Clear to auscultation, Normal air movement Neck Supple, No JVD, No masses, No thyromegaly, No lymphadenopathy Cardiovascular Regular rate and rhythm, Normal S1 and S2, No murmurs, gallops, rubs Abdomen Normal bowel sounds, Soft, No tenderness, No guarding Extremities No cyanosis, No clubbing, Normal pulses Skin Dermatitis present Neurological Cranial nerves intact, Strength 5/5 x4 ext's, No lateralizing signs Psych/Mental Status Mood normal, slightly lethrgic LAB Results Laboratory Tests 02/28 02/27 0055 2238 Chemistry Plasma Sodium (136 - 145 mmol/L) 145 Plasma Potassium (3.5 - 5.1 mmol/L) 4.3 Plasma Chloride (98 - 107 mmol/L) 106 CO2 (Enzymatic) (21 - 32 mmol/L) 30 BUN (7 - 18 mg/dL) 21 Creatinine (0.6 - 1.3 mg/dL) 1.1 Est GFR ( Amer) (mL/min) >60 Est GFR (Non-Af Amer) (mL/min) >60 Glucose (70 - 110 mg/dL) 113 Plasma Calcium (8.5 - 10.1 mg/dL) 9.3 Total Bilirubin (0.0 - 1.0 mg/dL) 1.9 AST (15 - 37 U/L) 61 ALT (12 - 78 U/L) 39 Alkaline Phosphatase (46 - 116 U/L) 101 Ammonia Pending Total Protein (6.4 - 8.2 g/dL) 6.4 Albumin (3.3 - 5.0 g/dL) 3.1 Amylase (25 - 115 U/L) 29 Lipase (73 - 393 U/L) 54 Coagulation INR (0.8 - 1.2) 1.2 APTT (24 - 34 SECONDS) 34 Hematology WBC (4.5 - 11.5 K/uL) 7.7 RBC (4.50 - 5.90 M/uL) 3.45 Hgb (13.5 - 17.5 gm/dL) 11.4 Hct (41.0 - 53.0 %) 34.2 MCV (80 - 100 fL) 99 MCH (26 - 34 pg) 33 RDW (11.6 - 14.8 %) 15.9 Gran % 73.0 Lymph % (Auto) (25 - 40 %) 23.2 [place] % (Auto) (3 - 14 %) 3.8 Plt Count, EDTA (150 - 400 K/uL) 132 PUBS MCHC (31 - 37 g/dL) 33 Urines Urine Color YELLOW Urine Appearance CLEAR Urine pH (5.0 - 8.0) 6.5 Ur Specific [place] (1.010 - 1.030) 1.015 Urine Protein (NEGATIVE) NEGATIVE Urine Ketones (NEGATIVE) NEGATIVE Urine Blood (NEGATIVE) NEGATIVE Urine Nitrite (NEGATIVE) NEGATIVE Urine Bilirubin (NEGATIVE) NEGATIVE Urine Urobilinogen (0.2 - 1.0 EU/dL) 0.2 Ur Leukocyte Esterase (NEGATIVE) NEGATIVE Urine RBC (0 - 1 rbc/hpf) 0-1 Urine WBC (0 - 1 wbc/hpf) 0-1 Ur Epithelial Cells (0 - 5 EPI/hpf) 0-1 Urine Bacteria (NONE SEEN) NONE SEEN Urine Glucose (NEGATIVE) NEGATIVE Urine Comment CULT NOT INDICATED Imaging Chest X-Ray IMPRESSION: 1. No acute cardiopulmonary disease. 2. Findings suggestive of TIPS shunt and previous esophageal varicosity coiling, together implying hepatic cirrhosis and portal hypertension. Dictated by: RAMIRO MCGINNIS MD D: SOTERO;02/27/17 0007 Hip X-Ray IMPRESSION: 1. Left femoral neck fracture resulting and left hip varus deformity. 2. 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 Dictated by: RAMIRO MCGINNIS MD D: SOTERO;02/27/17 3606 Assessment and Plan Problem List 1. Fracture of femoral neck, left Status Acute Onset Date 02/27/17 Plan -The patient presents with femoral neck fracture left side -Follow per orthopedics -Dr. Fredrick Boogie consulted-see his consultation note 2. Alcoholic cirrhosis of liver Status Chronic Onset Date Unknown Plan -Patient with history of alcoholic cirrhosis -Status post TIPS procedure -Overall status stable recently -Ammonia level slightly elevated -Continue rifaximin consider addition of lactulose if necessary -No overt evidence of hepatic encephalopathy at this time -Monitor 3. BPH (benign prostatic hyperplasia) Status Chronic Onset Date Unknown Plan -Patient with history of BPH -No complaints at this time -Continue Flomax 0.4 mg by mouth daily -Monitor for urinary retention 4. Alcoholic peripheral neuropathy Status Chronic Onset Date Unknown Plan -Long-standing history of alcoholic polyneuropathy -Continue gabapentin 300 mg by mouth daily at bedtime -Monitor 5. Gastroesophageal reflux Status Chronic Onset Date Unknown Plan -Patient with history of gastroesophageal reflux -Pepcid 20 mg IV twice a day -Monitor Current status: Fair, unstable Anticipated discharge date: Anticipated discharge 4-5 days Anticipated discharge placement: senior care facility Patient care time: Time in chart review, patient interview, physical exam, CPOE, and care documentation: 70 mins Visit to patient today: 2 Complexity of care: High DVT prophylaxis: Heparin 5000 units subcutaneous 3 times a day GI prophylaxis: Pepcid 20 mg IV twice a day E&M Codes Admission: Inpt-High/44922
[2017-02-28] MEDS ORDERED: PANTOPRAZOLE SO40 MG PO (01:43)
[2017-02-28] MEDS ORDERED: GABAPENTIN300 MG PO (01:44)
[2017-02-28] MEDS ORDERED: XIFAXAN550 MG PO (01:44)
[2017-02-28] MEDS ORDERED: MYLICON EQUIVAL80 MG PO (01:45)
[2017-02-28] MEDS ORDERED: FLOMAX0.4 MG PO (01:45)
[2017-02-28] MEDS ORDERED: FOLIC ACID1 MG PO (01:46)
[2017-02-28] MEDS ORDERED: MAGNESIUM400 M1 PO (01:46)
[2017-02-28] MEDS ORDERED: THIAMINE HCL100 MG PO (01:46)
[2017-02-28] MEDS ORDERED: EUCERI1 (01:47)
--- NOTE | 2017-02-28 02:16 | CONSULTATION REPORT ---
DATE OF CONSULTATION: 02/28/2017 HISTORY OF PRESENT ILLNESS: The patient is a 72-year-old, recovering alcoholic, who fell early in the afternoon of 02/27/2017, injuring his left hip. His manufacturing specialist helped him get in bed, but he got up to walk and fell again, and was brought to the [facility] Emergency Department where x-rays showed a displaced left femoral neck fracture. He is admitted for care of his left hip fracture. MEDICAL/SURGICAL HISTORY: Positive for alcoholic neuropathy, liver disease, hypertension, possible colon cancer, diagnosis of possible melanoma with a lesion on his left shoulder which was to be biopsied in 2 days. He also has a history of esophageal varices, ascites and a weight loss. MEDICATIONS: 1. Pantoprazole. 2. Gabapentin. 3. Xifaxan. 4. Simethicone. 5. Tamsulosin. 6. Ciprofloxacin. 7. Magnesium oxide. 8. Folic acid. 9. Thiamine. 10. Eucerin ointment. ALLERGIES: 1. PENICILLIN. 2. DIOVAN. SOCIAL HISTORY: He does not smoke. FAMILY HISTORY: REVIEW OF SYSTEMS: Negative. PHYSICAL EXAMINATION: GENERAL: The patient is supine in bed. He is oriented to person, place, and time. He has no tenderness in any other joints, except for his left hip. He has some shortening and external rotation of his left leg. He has good distal pulses, but has peripheral neuropathy distally with minimal discomfort and sensation. CHEST: Clear. HEART: Regular rate and rhythm. ABDOMEN: Soft, nontender, without masses. LAB/IMAGING: X-rays show a displaced left femoral neck fracture. No other abnormalities are seen on his AP or lateral pelvic views. IMPRESSION: 1. Left femoral neck fracture. PLAN: The patient is going to need a left femoral prosthesis. Dr. Morse is taking over his care at 7 a.m. morning. The patient understands his problem, as does his partner who provided some of his history.
--- NOTE | 2017-02-28 06:09 | Progress Note ---
Subjective General ADVANCED CARE PLAN History of Present Illness The patient is a 72-year-old white male with a significant past medical history of alcoholic cirrhosis, gastroesophageal reflux, alcoholic polyneuropathy, hypertension, BPH, who presented to [facility] emergency department on the day of admission secondary to complaints of fall with left hip pain. [facility] ER evaluation was consistent with subtrochanteric fracture left hip. Dr. Fredrick Boogie ( orthopedics) was contacted and requested the patient be admitted by the hospitalist service. Secondary to the above, the patient was admitted by Jesu Morris M.D. for further evaluation and treatment. For other history present illness, past medical history, family history, social history, review of systems, and admission physical examination please see the patient's history and physical examination and ER visit note in the patient's medical record. A discussion was undertaken with the patient regarding previous advance care arrangements/decisions. The following advanced directives were noted by the patient and discussed with me at the time of admission. ADVANCED DIRECTIVES: 1. Living well: No 2. POLST: No 3. CODE STATUS: NO CODE 4. Durable Power Spray Gun Repairer Helper Health care: Yes 5. Donor card: No The patient has expressed interest in not pursuing any form of resuscitation at this time. He has opted not to pursue intubation/mechanical ventilation, CPR, electrical cardioversion, or life-sustaining efforts involving drugs at the time of cardiopulmonary arrest. The patient's wishes were documented in the chart and orders regarding the patient's wishes entered into the [employer] CPOE system. The "Advance Care Plan Document" was not distributed to patient to discuss with his family. Approximately 17 minutes was spent in performing the above tasks and documentation of the patient's advanced care plan.
--- NOTE | 2017-02-28 06:09 | Progress Note ---
Subjective General ADVANCED CARE PLAN History of Present Illness The patient is a 72-year-old white male with a significant past medical history of alcoholic cirrhosis, gastroesophageal reflux, alcoholic polyneuropathy, hypertension, BPH, who presented to [facility] emergency department on the day of admission secondary to complaints of fall with left hip pain. [facility] ER evaluation was consistent with subtrochanteric fracture left hip. Dr. Fredrick Boogie ( orthopedics) was contacted and requested the patient be admitted by the hospitalist service. Secondary to the above, the patient was admitted by Jesu Morris M.D. for further evaluation and treatment. For other history present illness, past medical history, family history, social history, review of systems, and admission physical examination please see the patient's history and physical examination and ER visit note in the patient's medical record. A discussion was undertaken with the patient regarding previous advance care arrangements/decisions. The following advanced directives were noted by the patient and discussed with me at the time of admission. ADVANCED DIRECTIVES: 1. Living well: No 2. POLST: No 3. CODE STATUS: NO CODE 4. Durable Power Plumber Gasfitter Health care: Yes 5. Donor card: No The patient has expressed interest in not pursuing any form of resuscitation at this time. He has opted not to pursue intubation/mechanical ventilation, CPR, electrical cardioversion, or life-sustaining efforts involving drugs at the time of cardiopulmonary arrest. The patient's wishes were documented in the chart and orders regarding the patient's wishes entered into the [employer] CPOE system. The "Advance Care Plan Document" was not distributed to patient to discuss with his family. Approximately 17 minutes was spent in performing the above tasks and documentation of the patient's advanced care plan.
--- NOTE | 2017-02-28 11:24 | ED MED RECONCILIATION SUMMARY ---
Patient: SANDRA PRICE Medication Reconciliation Report [facility] VisitID: [id number] [place] [address] 72y, M Registration Date/Time: 02/27/2017 Weight: 70.3 kg Height/Length: 71 in. BMI: 21.6 ALLERGIES: Ampicillin, Diovan The patient's Home Medications are listed below: THE FOLLOWING MEDICATIONS NEED TO BE RECONCILED: Cipro Oral (500 mg) 1 tablet, daily Folic Acid Oral (1 mg) 1 tablet, daily Gabapentin Oral (300 mg) 1 capsule, at bedtime Magnesium Oral (400 mg) 2 capsules, 2x a day Pantoprazole Sodium Oral (40 mg) 1 tablet, 2x a day Simethicone Oral (80 mg) 1 tablet, tid Tamsulosin HCl Oral (0.4 mg) 1 capsule, daily Thiamine HCl Oral (100 mg) 1 tablet, Daily Xifaxan Oral (550 mg) 1 tablet, BID The source(s) of the original Home Medication information: Not obtained. The following Medications were given to the patient in the Emergency Department: Zofran [IVP] IVP 4 mg, administered: 02/28/2017 12:16:00 AM Dilaudid [IVP] IVP 0.5 mg, administered: 02/28/2017 12:18:00 AM The following Medications were prescribed to the patient: None.
--- NOTE | 2017-02-28 11:24 | ED DISCHARGE INSTRUCTIONS ---
Patient: SANDRA PRICE General Instructions [facility] VisitID: [id number] [place] [address] 72y, M Registration Date/Time: 02/27/2017 Fracture of the neck of the left femur. Fall. ADDITIONAL INFORMATION Mechanical Fall You have had a fall today. It appears that the cause is mechanical. That means that you slipped, tripped or lost your balance. If your fall had been due to fainting or a seizure, further tests would be required. Home Care: Rest today and resume your normal activities when you are feeling back to normal. If you were injured during the fall, follow the advice from your doctor regarding care of your injury. You may use acetaminophen (Tylenol) or ibuprofen (Motrin, Advil) to control pain, unless another pain medicine was prescribed. [NOTE: If you have chronic liver or kidney disease or ever had a stomach ulcer or GI bleeding, talk with your doctor before using these medicines.] Fall Prevention: Was there anything that caused your fall that can be fixed, removed, or replaced? Make your home safe by keeping walkways clear of objects you may trip over. Use non-slip pads under rugs. Do not walk in poorly lit areas. Do not stand on chairs or wobbly ladders. Use caution when reaching overhead or looking upward. This position can cause a loss of balance. Be sure your shoes fit properly, have non-slip bottoms and are in good condition. Be cautious when going up and down curbs, and walking on uneven sidewalks. If your balance is poor, consider using a cane or walker. Stay as active as you can. Balance, flexibility, strength, and endurance all come from exercise. They all play a role in preventing falls. Follow Up with your doctor or as advised by our staff. Get Prompt Medical Attention if any of the following occur: Repeated mechanical falls, or unexplained falls Dizziness, fainting or seizure Severe headache Chest pain or shortness of breath Palpitations (very rapid or very slow or irregular heartbeat) Blood in vomit, stools (black or red color) Weakness of an arm or leg or one side of the face Difficulty with speech or vision You have been given the following additional information: Fall, Mechanical (Electronically signed by Mohan Millan MD 02/28/2017 11:23)
--- NOTE | 2017-02-28 11:24 | ED MAR SUMMARY ---
..... Medication Administration Record [facility] [address] [place] [address] Patient: SANDRA PRICE Visit ID: [id number] 72y, M Weight: 70.3 kg Height/Length: 71 in BMI: 21.6 ALLERGIES: Diovan, Ampicillin Given 00:16 02/28/2017 Angel Robles R.N. Medication Administered: ZOFRAN [IVP] (ONDANSETRON HCL), Dose: 4 mg IVP over 2 minute(s), Site: #1 right AC. Medication Ordered: Zofran IV 4 mg (NOW). Given 00:18 02/28/2017 Angel Robles, R.N. Medication Administered: DILAUDID [IVP] (HYDROMORPHONE HCL PF), Dose: 0.5 mg IVP over 2 minute(s), Site: #1 right AC. Medication Ordered: Dilaudid IV 0.5 mg (HIGH ALERT MEDICATION, NOW).
--- NOTE | 2017-02-28 11:24 | ED MED RECONCILIATION SUMMARY ---
Patient: SANDRA PRICE Medication Reconciliation Report [facility] VisitID: [id number] [place] [address] 72y, M Registration Date/Time: 02/27/2017 Weight: 70.3 kg Height/Length: 71 in. BMI: 21.6 ALLERGIES: Ampicillin, Diovan The patient's Home Medications are listed below: THE FOLLOWING MEDICATIONS NEED TO BE RECONCILED: Cipro Oral (500 mg) 1 tablet, daily Folic Acid Oral (1 mg) 1 tablet, daily Gabapentin Oral (300 mg) 1 capsule, at bedtime Magnesium Oral (400 mg) 2 capsules, 2x a day Pantoprazole Sodium Oral (40 mg) 1 tablet, 2x a day Simethicone Oral (80 mg) 1 tablet, tid Tamsulosin HCl Oral (0.4 mg) 1 capsule, daily Thiamine HCl Oral (100 mg) 1 tablet, Daily Xifaxan Oral (550 mg) 1 tablet, BID The source(s) of the original Home Medication information: Not obtained. The following Medications were given to the patient in the Emergency Department: Zofran [IVP] IVP 4 mg, administered: 02/28/2017 12:16:00 AM Dilaudid [IVP] IVP 0.5 mg, administered: 02/28/2017 12:18:00 AM The following Medications were prescribed to the patient: None.
--- NOTE | 2017-02-28 11:24 | ED MAR SUMMARY ---
..... Medication Administration Record [facility] [address] [place] [address] Patient: SANDRA PRICE Visit ID: [id number] 72y, M Weight: 70.3 kg Height/Length: 71 in BMI: 21.6 ALLERGIES: Diovan, Ampicillin Given 00:16 02/28/2017 Angel Robles R.N. Medication Administered: ZOFRAN [IVP] (ONDANSETRON HCL), Dose: 4 mg IVP over 2 minute(s), Site: #1 right AC. Medication Ordered: Zofran IV 4 mg (NOW). Given 00:18 02/28/2017 Angel Robles, R.N. Medication Administered: DILAUDID [IVP] (HYDROMORPHONE HCL PF), Dose: 0.5 mg IVP over 2 minute(s), Site: #1 right AC. Medication Ordered: Dilaudid IV 0.5 mg (HIGH ALERT MEDICATION, NOW).
--- NOTE | 2017-02-28 20:55 | Operative Report ---
Operative Report Date of Surgery: 02/28/2017 Preoperate Diagnosis: left subcapital hip fracture Postoperative Diagnosis: same Surgeon: Catrachito Morse MD Internal Medicine Veterinary Technician Surgeon: none Procedure Performed: left bipolar hip replacement Anesthesia: general by endotracheal tube Indications: displaced subcapital fracture left hip Surgical Technique: posterior approach press fit stem bipolar Narvaez [employer]hew Synergy porous stem size 10, +4mm neck on the 28mm inner head, and 51mm outer head.
--- NOTE | 2017-02-28 20:55 | Operative Report ---
Operative Report Date of Surgery: 02/28/2017 Preoperate Diagnosis: left subcapital hip fracture Postoperative Diagnosis: same Surgeon: Catrachito Morse MD Desktop Architect Surgeon: none Procedure Performed: left bipolar hip replacement Anesthesia: general by endotracheal tube Indications: displaced subcapital fracture left hip Surgical Technique: posterior approach press fit stem bipolar [employer] Synergy porous stem size 10, +4mm neck on the 28mm inner head, and 51mm outer head.
--- NOTE | 2017-02-28 22:01 | DIAGNOSTIC IMAGING REPORT ---
PROCEDURE: XR HIP 1 VIEW - LEFT - PC INDICATION: POST OP BIPOLAR HIP FOR FRACTURE TECHNIQUE: AP view. COMPARISON: Left hip x-ray 02/27/2017. FINDINGS: Interval placement of a bipolar hip arthroplasty with satisfactory positioning. Postsurgical changes of the soft tissues. IMPRESSION: 1. Left hip arthroplasty with normal postoperative appearance
--- NOTE | 2017-02-28 22:28 | OPERATIVE REPORT ---
DATE OF SURGERY: 02/28/2017 SURGEON: Catrachito Morse MD SEGMENTAL WALL INSTALLER: None. PREOPERATIVE DIAGNOSIS: Left subcapital hip fracture POSTOPERATIVE DIAGNOSIS: Left subcapital hip fracture PROCEDURE PERFORMED: 1. Left bipolar hip replacement ANESTHESIA: General by endotracheal tube. MATERIALS: Surgical technique was a posterior approach utilizing a press-fit femoral stem bipolar hip, implants [employer]azo [employer] Nephew Synergy porous stem size 10, +4 mm neck length on the 28 mm inner head of the bipolar and a 51 mm outer head. The metallic components are cobalt chrome. ESTIMATED BLOOD LOSS: 300 mL. DRAINS: None. PATHOLOGY SPECIMEN: None. The femoral head was discarded. FLUIDS: Blood transfusions none. INDICATIONS: Displaced subcapital left hip fracture. SURGICAL FINDINGS: Displaced subcapital hip fracture on the left. SURGICAL TECHNIQUE: The patient was brought to the operating room, laid in the supine position and intubated. He was placed on the operating room table on the right lateral decubitus with the affected left side up, and it was held in place with a beanbag. Pressure points were padded including an axillary roll laid under the armpit. A time-out was held identifying the patient by name, date, side of surgery , nature of surgery and the antibiotic given preoperatively. The hip was sterilely prepped, painted and free draped. A posterolateral approach was used to the hip. The skin, subcutaneous tissue, fascia of the gluteus were cut in the same line. The gluteus was bluntly split in line with its fibers. Short external rotators were cut back off the posterior trochanter and femur revealing the capsule, which was cut in a T-shaped incision. The femoral head was removed and measured at 51 mm. We made sure the acetabulum was clear of debris. Attention was turned to the femoral shaft. The femoral shaft was opened with an awl and a box chisel proximally. Then broaching was done and went up to a size 10 broach. We tried a size 11, it would not go into the femur. The size 10 broach was put back into place, tapped down into position. The femoral calcar reamer was used to cut a few millimeters off the calcar of the femur. Then the broach was used as a trial stem and the +4 mm length was found to have the best balance of stability of the hip with ligament tension. The final prostheses were identified and put on the sterile field. The #10 femoral stem was impacted into place, and then the acetabulum was checked for debris. No debris was found in the acetabulum by visible and palpable inspection. Then the bipolar head was constructed on the side table and brought to the femoral stem where it was tapped into place. I tried to disassociate the femoral head from the stem, but was unable to, demonstrating it was solidly in place on the trunnion. Finally, a final check of the acetabulum was made for debris, it was irrigated out and sucked dry and then the prosthesis was relocated into the acetabulum. The wound was closed in layers with absorbable suture, except for the skin, which was closed with sayra. A sterile dressing was placed upon the wound. The patient was awakened and then brought from the operating room in good condition.
[2017-03-01] VITALS (7 sets, daily range): BP systolic 82–131; BP diastolic 36–71
--- NOTE | 2017-03-01 11:52 | Progress Note ---
Late Entry Date/Time Late Entry Date and Time LATE ENTRY Date of visit: Time of visit: Subjective General No chest pain. L hip pain on his chronic methadone 20mg bid and dilaudid for breakthrough. He goes to sleep and is unreponsive for a few hours with dilaudid 0.5mg. Physical Exam Vital Signs / I&Os Vital Signs Date Time Temp Pulse Resp B/P Pulse O2 O2 Flow FiO2 Ox Delivery Rate 03/01 1032 99.0 78 16 126/42 100 Nasal 1.0 Cannula 03/01 1003 67 9 100 2.0 03/01 0958 3.0 03/01 0739 14 03/01 0735 99.1 03/01 0734 65 10 95 3.0 03/01 0634 100.4 83 16 131/41 100 Nasal 1.0 Cannula 03/01 0509 74 8 99 1.0 03/01 0353 99.0 87 18 128/37 97 Nasal 2.0 Cannula 03/01 0215 80 10 94 2.0 03/01 0049 1.0 03/01 0021 99.1 98 16 120/71 99 Nasal 1.0 Cannula 02/28 2334 99.7 85 18 155/75 100 Nasal 1.0 Cannula 02/28 2308 80 10 100 1.0 02/28 2300 98.6 83 18 146/56 100 Nasal 1.0 Cannula 02/28 2245 98.8 84 18 146/56 100 Nasal 1.0 Cannula 02/280 98.2 80 18 149/47 100 Nasal 1.0 Cannula 02/28 2214 78 16 141/48 100 02/28 2213 71 141/48 02/28 2158 98.4 70 16 139/60 100 02/28 2145 72 15 139/58 100 Nasal 1.0 Cannula 02/29 2140 99.7 71 24 129/55 99 Nasal 1.0 Cannula 02/28 2135 74 15 151/54 99 Nasal 1.0 Cannula 02/28 2130 79 15 96 Nasal 1.0 Cannula 02/28 2125 74 14 139/95 100 Nasal 1.0 Cannula 02/29 2120 75 13 143/48 100 Nasal 2.0 Cannula 02/28 2115 81 14 145/51 100 Nasal 2.0 Cannula 02/28 2110 78 14 143/68 100 Nasal 3.0 Cannula 06/26 2105 85 19 146/54 100 Nasal 3.0 Cannula 02/28 2100 85 20 174/60 100 Nasal 3.0 Cannula 02/28 2055 84 16 157/63 100 Nasal 3.0 Cannula 02/28 2050 87 17 160/65 100 Nasal 3.0 Cannula 02/285 88 14 158/75 100 Nasal 3.0 Cannula 02/28 2042 97.9 88 12 155/73 96 Nasal 3.0 Cannula 02/28 1827 67 10 100 2.0 02/28 1449 66 9 100 2.0 02/28 1430 97.5 68 16 140/54 100 Nasal 2.0 Cannula 02/28 1240 68 8 100 2.0 02/28 1201 3.0 I&O 02/28 0800 02/28 1600 03/01 0000 Intake Total 298 950 Output Total 450 655 Balance 298 -450 295 Extremities No calf tenderness bilaterally. Neurological can flex and dorsiflex his left toes Meds/Labs/Orders Medication List: Current Medications Sig/Otilia Start time Last Medication Dose Route Stop Time Status Admin Lidocaine 1 PATCH DAILY 03/01 1200 AC TOP Cefazolin Sodium/ 100 ML NOW ONE 03/01 1130 AC Dextrose IV 03/01 1149 Hydromorphone HCl 0.5 MG Q1H PRN 03/01 0445 AC 03/01 IV 0647 Gabapentin 300 MG QHS 02/28 2100 AC 02/28 PO 2216 Tamsulosin HCl 0.4 MG QHS 02/28 2100 AC 02/28 PO 2216 Folic Acid 1 MG DAILY 02/28 0900 AC 03/01 PO 0837 Heparin Sodium 5,000 UNITS BID 02/28 0900 AC 03/01 (Porcine) SC 0837 Rifaximin 550 MG BID 02/28 0900 AC 03/01 PO 0827 Thiamine HCl 100 MG DAILY 02/28 0900 AC 03/01 PO 0837 Famotidine/Sodium 50 ML Q12HR 02/28 0330 AC 03/01 Chloride IV 0837 Ondansetron HCl 4 MG Q6H PRN 02/28 0145 AC IV Sodium Chloride 1,000 ML ASDIRECTED 02/28 0145 AC 03/01 IV 1054 Lab Results: Laboratory Tests 02/28 02/28 03/01 03/01 03/01 1235 2130 0500 0500 0540 Chemistry Plasma Sodium (136 - 145 mmol/L) Cancelled 144 Plasma Potassium (3.5 - 5.1 mmol/L) Cancelled 4.6 Plasma Chloride (98 - 107 mmol/L) Cancelled 109 CO2 (Enzymatic) (21 - 32 mmol/L) Cancelled 30 BUN (7 - 18 mg/dL) Cancelled 20 Creatinine (0.6 - 1.3 mg/dL) Cancelled 1.1 Est GFR ( Amer) (mL/min) Cancelled >60 Est GFR (Non-Af Amer) (mL/min) Cancelled >60 Glucose (70 - 110 mg/dL) Cancelled 118 Hemoglobin A1c % Cancelled Plasma Calcium (8.5 - 10.1 mg/dL) Cancelled 7.8 Total Bilirubin (0.0 - 1.0 mg/dL) 1.6 AST (15 - 37 U/L) 45 ALT (12 - 78 U/L) 28 Alkaline Phosphatase (46 - 116 U/L) 63 Ammonia (11 - 32 umol/L) 19 Total Protein (6.4 - 8.2 g/dL) 5.1 Albumin (3.3 - 5.0 g/dL) 2.5 Hematology WBC (4.5 - 11.5 K/uL) Cancelled 10.9 RBC (4.50 - 5.90 M/uL) Cancelled 2.64 Hgb (13.5 - 17.5 gm/dL) 10.2 Cancelled 8.9 Hct (41.0 - 53.0 %) 30.8 Cancelled 26.1 MCV (80 - 100 fL) Cancelled 99 MCH (26 - 34 pg) Cancelled 34 RDW (11.6 - 14.8 %) Cancelled 15.6 Neut % (Auto) (50 - 75 %) 69.8 Lymph % (Auto) (25 - 40 %) 15.4 [place] % (Auto) (3 - 14 %) 12.2 Eos % (Auto) (0 - 4 %) 2.0 Baso % (Auto) (0 - 2 %) 0.6 Plt Count, EDTA (150 - 400 K/uL) Cancelled 100 PUBS MCHC (31 - 37 g/dL) Cancelled 34 03/01 03/01 0625 0900 Chemistry Plasma Sodium Cancelled Plasma Potassium Cancelled Plasma Chloride Cancelled CO2 (Enzymatic) Cancelled BUN Cancelled Creatinine Cancelled Est GFR ( Amer) Cancelled Est GFR (Non-Af Amer) Cancelled Glucose Cancelled Plasma Calcium Cancelled Ammonia (11 - 32 umol/L) 70 Plan Activity: PT consultation Medications/IV Plans: Decrease IV fluids, Stop antibiotics Additional Comments: Follow cbc
--- NOTE | 2017-03-01 13:43 | Progress Note ---
Subjective General Patient seen and examined. Patient is still very much confused. Patient is complaining of a little pain at the operation site. Patient's pain was completely controlled with lidocaine patch after was applied. Physical Exam Vital Signs / I&Os Vital Signs Date Time Temp Pulse Resp B/P Pulse O2 O2 Flow FiO2 Ox Delivery Rate 03/01 1432 98.8 81 16 106/36 100 Nasal 1.0 Cannula 03/01 1032 99.0 78 16 126/42 100 Nasal 1.0 Cannula 03/01 1003 67 9 100 2.0 03/01 0958 3.0 03/01 0739 14 03/01 0735 99.1 03/01 0734 65 10 95 3.0 03/01 0634 100.4 83 16 131/41 100 Nasal 1.0 Cannula 03/01 0509 74 8 99 1.0 03/01 0353 99.0 87 18 128/37 97 Nasal 2.0 Cannula 03/01 0215 80 10 94 2.0 03/01 0049 1.0 03/01 0021 99.1 98 16 120/71 99 Nasal 1.0 Cannula 02/28 2334 99.7 85 18 155/75 100 Nasal 1.0 Cannula 02/28 2308 80 10 100 1.0 02/28 2300 98.6 83 18 146/56 100 Nasal 1.0 Cannula 02/28 2245 98.8 84 18 146/56 100 Nasal 1.0 Cannula 02/28 2230 98.2 80 18 149/47 100 Nasal 1.0 Cannula 02/28 2214 78 16 141/48 100 02/283 71 141/48 02/288 98.4 70 16 139/60 100 02/28 2145 72 15 139/58 100 Nasal 1.0 Cannula 02/29 2140 99.7 71 24 129/55 99 Nasal 1.0 Cannula 02/28 2135 74 15 151/54 99 Nasal 1.0 Cannula 02/28 2130 79 15 96 Nasal 1.0 Cannula 02/28 2125 74 14 139/95 100 Nasal 1.0 Cannula 02/280 75 13 143/48 100 Nasal 2.0 Cannula 02/28 2115 81 14 145/51 100 Nasal 2.0 Cannula 02/28 2110 78 14 143/68 100 Nasal 3.0 Cannula 02/285 85 19 146/54 100 Nasal 3.0 Cannula 02/28 2100 85 20 174/60 100 Nasal 3.0 Cannula 02/28 2055 84 16 157/63 100 Nasal 3.0 Cannula 02/28 2050 87 17 160/65 100 Nasal 3.0 Cannula 02/28 2045 88 14 158/75 100 Nasal 3.0 Cannula 02/28 2042 97.9 88 12 155/73 96 Nasal 3.0 Cannula 02/287 67 10 100 2.0 I&O 02/28 0800 02/28 1600 03/01 0000 Intake Total 298 950 Output Total 450 655 Balance 298 -450 295 General Appearance Alert, No acute distress HEENT Atraumatic, PERRLA, Moist mucous membranes Lungs Clear to auscultation Neck Supple, No JVD, No masses Cardiovascular Regular rate and rhythm, No murmurs, gallops, rubs Abdomen Soft, No tenderness Extremities No edema, Normal pulses Skin - various keratotic lesions - no skin breakdown Neurological Normal speech, Normal tone, Sensation intact, Cranial nerves intact , No lateralizing signs Psych/Mental Status Confused LAB Results Laboratory Tests 02/28 03/01 03/01 03/01 03/01 2130 0500 0500 0540 0625 Chemistry Plasma Sodium (136 - 145 mmol/L) Cancelled 144 Plasma Potassium (3.5 - 5.1 mmol/L) Cancelled 4.6 Plasma Chloride (98 - 107 mmol/L) Cancelled 109 CO2 (Enzymatic) (21 - 32 mmol/L) Cancelled 30 BUN (7 - 18 mg/dL) Cancelled 20 Creatinine (0.6 - 1.3 mg/dL) Cancelled 1.1 Est GFR ( Amer) (mL/min) Cancelled >60 Est GFR (Non-Af Amer) (mL/min) Cancelled >60 Glucose (70 - 110 mg/dL) Cancelled 118 Hemoglobin A1c % Cancelled Plasma Calcium (8.5 - 10.1 mg/dL) Cancelled 7.8 Total Bilirubin (0.0 - 1.0 mg/dL) 1.6 AST (15 - 37 U/L) 45 ALT (12 - 78 U/L) 28 Alkaline Phosphatase (46 - 116 U/L) 63 Ammonia (11 - 32 umol/L) 70 Total Protein (6.4 - 8.2 g/dL) 5.1 Albumin (3.3 - 5.0 g/dL) 2.5 Hematology WBC (4.5 - 11.5 K/uL) Cancelled 10.9 RBC (4.50 - 5.90 M/uL) Cancelled 2.64 Hgb (13.5 - 17.5 gm/dL) 10.2 Cancelled 8.9 Hct (41.0 - 53.0 %) 30.8 Cancelled 26.1 MCV (80 - 100 fL) Cancelled 99 MCH (26 - 34 pg) Cancelled 34 RDW (11.6 - 14.8 %) Cancelled 15.6 Neut % (Auto) (50 - 75 %) 69.8 Lymph % (Auto) (25 - 40 %) 15.4 [place] % (Auto) (3 - 14 %) 12.2 Eos % (Auto) (0 - 4 %) 2.0 Baso % (Auto) (0 - 2 %) 0.6 Plt Count, EDTA (150 - 400 K/uL) Cancelled 100 PUBS MCHC (31 - 37 g/dL) Cancelled 34 03/01 0900 Chemistry Plasma Sodium Cancelled Plasma Potassium Cancelled Plasma Chloride Cancelled CO2 (Enzymatic) Cancelled BUN Cancelled Creatinine Cancelled Est GFR ( Amer) Cancelled Est GFR (Non-Af Amer) Cancelled Glucose Cancelled Plasma Calcium Cancelled Assessment and Plan Problem List 1. Fracture of femoral neck, left Status Acute Onset Date 02/27/17 Plan Patient presented with left femoral neck fracture Patient underwent bipolar hip prosthesis Currently patient has pain over the incision site, patient's pain is a little better controlled with lidocaine patch We'll have physical therapy assess patient 2. Alcoholic cirrhosis of liver Status Chronic Onset Date Unknown Plan Patient has an established history of alcoholic cirrhosis Currently patient is not exhibiting any signs of alcohol withdrawal the moment Patient does have elevated ammonia levels secondary to hepatic dysfunction less obtained ammonia was 70 We'll continue with rifaximin twice a day We'll repeat ammonia level in a.m. 3. BPH (benign prostatic hyperplasia) Status Chronic Onset Date Unknown Plan Patient has a history of BPH Patient had difficulty urinating yesterday preoperatively Full catheter was placed Before discharge will ensure patient can urinate without the use of a Black catheter 4. Alcoholic peripheral neuropathy Status Chronic Onset Date Unknown Plan Patient has no complaints We'll continue with home meds 5. Anemia due to blood loss, acute Plan We'll trend CBC
[2017-03-02] VITALS (14 sets, daily range): BP systolic 90–148; BP diastolic 40–67
--- NOTE | 2017-03-02 13:58 | Progress Note ---
Subjective General Patient seen and examined. Patient's mentation is much more improved. The day before. Patient was seen to have a hemoglobin of 7 this morning. The CBC was repeated and patient was indeed found to be anemic dropping 3 points since admission. Patient was transfused 2 units. Patient additionally had elevated ammonia levels. Patient was given lactulose as Topamax rifaximin, to combat this. Patient is otherwise doing well Constitutional Denies: Fever, Chills, Sweats, Weakness, Malaise, Other. ENT Denies: Ear Pain, Ear Discharge, Nose Pain, Nasal Discharge, Nasal Congestion, Mouth Pain, Mouth Swelling, Throat Pain, Throat Swelling, Other. Respiratory Denies: Cough, Dry, SOB w/exertion, Wheezing, Hemoptysis, Pleuritic Pain, Sputum , Other. Cardiovascular Denies: Chest Pain, Palpitations, Orthopnea, PND, Edema, Light-headedness, Other. Genitourinary Denies: Dysuria, Frequency, Incontinence, Hematuria, Retention, Other. Musculoskeletal Leg Pain. Denies: Neck Pain, Shoulder Pain, Arm Pain, Back Pain, Hand Pain, Foot Pain, Other. Skin Lesions. Neurological Denies: Weakness, Numbness, Incoordination, Change in speech, Confusion, Seizures, Other. Physical Exam Vital Signs / I&Os Vital Signs Date Time Temp Pulse Resp B/P Pulse O2 O2 Flow FiO2 Ox Delivery Rate 03/03 1043 98.4 91 16 125/45 96 Nasal 1.0 Cannula 03/03 0737 1.0 03/03 0625 99.0 92 16 124/50 100 Nasal 2.0 Cannula 03/03 0322 98.8 67 15 132/77 96 Nasal 2.0 Cannula 03/03 0110 Nasal 2.0 Cannula 03/024 99.1 96 18 142/46 100 NC/FT 2.0 03/02 2100 99.1 100 18 147/54 100 NC/FT 2.0 03/02 2000 99.3 106 18 148/60 100 NC/FT 2.0 03/02 192 99.3 100 18 140/51 100 NC/FT 2.0 03/02 191 98.8 109 18 147/67 100 NC/FT 2.0 03/02 180 98.8 101 18 140/51 100 NC/FT 2.0 03/02 1740 98.8 101 18 127/40 100 NC/FT 2.0 03/02 1700 NC/FT 2.0 03/02 1644 99.3 102 18 140/52 100 NC/FT 2.0 03/02 1545 98.6 97 18 134/51 100 NC/FT 2.0 03/02 1517 97 18 141/53 100 NC/FT 2.0 03/02 1452 98.6 98 18 134/51 100 I&O 03/02 0800 03/02 1600 03/03 0000 Intake Total 6833 073 5275 Output Total 150 725 550 Balance 1622 76 835 General Appearance Alert, Oriented X3, No acute distress HEENT Atraumatic, PERRLA, Moist mucous membranes Lungs Clear to auscultation Neck Supple, No JVD, No masses Cardiovascular Regular rate and rhythm, No murmurs, gallops, rubs Abdomen Soft, No tenderness, No masses Skin - various areas of excoriation Neurological Normal tone, Sensation intact, Cranial nerves intact, No lateralizing signs Psych/Mental Status Mood normal LAB Results Laboratory Tests 03/02 03/03 03/03 2230 0501 0950 Chemistry Plasma Sodium (136 - 145 mmol/L) 140 Plasma Potassium (3.5 - 5.1 mmol/L) 4.1 Plasma Chloride (98 - 107 mmol/L) 106 CO2 (Enzymatic) (21 - 32 mmol/L) 29 BUN (7 - 18 mg/dL) 21 Creatinine (0.6 - 1.3 mg/dL) 0.9 Est GFR ( Amer) (mL/min) >60 Est GFR (Non-Af Amer) (mL/min) >60 Glucose (70 - 110 mg/dL) 115 Plasma Calcium (8.5 - 10.1 mg/dL) 7.6 Ammonia (11 - 32 umol/L) 23 Hematology WBC (4.5 - 11.5 K/uL) 7.7 RBC (4.50 - 5.90 M/uL) 2.40 Hgb (13.5 - 17.5 gm/dL) 8.1 7.9 Hct (41.0 - 53.0 %) 23.9 23.3 MCV (80 - 100 fL) 97 MCH (26 - 34 pg) 33 RDW (11.6 - 14.8 %) 16.1 Neut % (Auto) (50 - 75 %) 59.9 Lymph % (Auto) (25 - 40 %) 24.0 [place] % (Auto) (3 - 14 %) 13.8 Eos % (Auto) (0 - 4 %) 1.9 Baso % (Auto) (0 - 2 %) 0.4 Plt Count, EDTA (150 - 400 K/uL) 86 PUBS MCHC (31 - 37 g/dL) 34 Assessment and Plan Problem List 1. Fracture of femoral neck, left Status Acute Onset Date 02/27/17 Plan Patient is status post bipolar hip prosthesis Patient is having slight amounts of pain from the surgery will treat with narcotics Due to patient's decreased liver function there is decreased metabolism of the drug therefore patient is very sensitive to opiate medications 2. Alcoholic cirrhosis of liver Status Chronic Onset Date Unknown Plan Patient is an established history of cirrhosis of liver secondary to alcohol abuse Patient is very sensitive narcotic medication therefore. Medication should be given judiciously Patient additionally has elevated ammonia levels Patient's ammonia was originally treated with rifaximin however patient is not responding appropriately therefore will start lactulose We'll titrate lactulose to 4 bowel movements daily 3. Anemia due to blood loss, acute Plan Patient was seen to drop 3.7 hemoglobin since admission Patient will be transfused 2 units of PRBCs will repeat CBC in the a.m.
--- NOTE | 2017-03-02 17:54 | Progress Note ---
Meds/Labs/Orders Medication List: Current Medications Sig/Otilia Start time Last Medication Dose Route Stop Time Status Admin Oxycodone HCl 5 MG Q3H PRN 03/02 1730 AC PO Lactulose 20 GM QID 03/02 1200 AC 03/02 PO 1150 Sodium Chloride 250 ML .[FOR TRANSFUSION] 03/02 1030 AC IV 03/02 2200 Famotidine 20 MG DAILY 03/02 0900 AC 03/02 PO 0913 Lidocaine 1 PATCH DAILY 03/01 1200 AC 03/02 TOP 0913 Gabapentin 300 MG QHS 02/28 2100 AC 03/01 PO 2036 Tamsulosin HCl 0.4 MG QHS 02/28 2100 AC 03/01 PO 203 Folic Acid 1 MG DAILY 02/28 0900 AC 03/02 PO 09 Heparin Sodium 5,000 UNITS BID 02/28 0900 AC 03/02 (Porcine) SC 0913 Rifaximin 550 MG BID 02/28 0900 AC 03/02 PO 0913 Thiamine HCl 100 MG DAILY 02/28 0900 AC 03/02 PO 0913 Ondansetron HCl 4 MG Q6H PRN 02/28 0145 AC IV Sodium Chloride 1,000 ML ASDIRECTED 02/28 0145 AC 03/02 IV 0518 Lab Results: Laboratory Tests 03/02 03/02 03/02 03/02 0515 0515 0900 1005 Chemistry Plasma Sodium (136 - 145 mmol/L) 139 Cancelled Plasma Potassium (3.5 - 5.1 mmol/L) 4.3 Cancelled Plasma Chloride (98 - 107 mmol/L) 106 Cancelled CO2 (Enzymatic) (21 - 32 mmol/L) 30 Cancelled BUN (7 - 18 mg/dL) 27 Cancelled Creatinine (0.6 - 1.3 mg/dL) 1.1 Cancelled Est GFR ( Amer) (mL/min) >60 Cancelled Est GFR (Non-Af Amer) (mL/min) >60 Cancelled Glucose (70 - 110 mg/dL) 125 Cancelled Plasma Calcium (8.5 - 10.1 mg/dL) 7.5 Cancelled Total Bilirubin (0.0 - 1.0 mg/dL) 1.4 AST (15 - 37 U/L) 43 ALT (12 - 78 U/L) 22 Alkaline Phosphatase (46 - 116 U/L) 51 Ammonia (11 - 32 umol/L) 69 Total Protein (6.4 - 8.2 g/dL) 4.4 Albumin (3.3 - 5.0 g/dL) 2.3 Hematology WBC (4.5 - 11.5 K/uL) 8.3 9.3 RBC (4.50 - 5.90 M/uL) 2.08 2.16 Hgb (13.5 - 17.5 gm/dL) 7.0 7.3 Hct (41.0 - 53.0 %) 20.8 21.9 MCV (80 - 100 fL) 100 101 MCH (26 - 34 pg) 34 34 RDW (11.6 - 14.8 %) 16.1 16.0 Neut % (Auto) (50 - 75 %) 58.4 Lymph % (Auto) (25 - 40 %) 26.7 [place] % (Auto) (3 - 14 %) 12.7 Eos % (Auto) (0 - 4 %) 1.9 Baso % (Auto) (0 - 2 %) 0.3 Plt Count, EDTA (150 - 400 K/uL) 84 102 PUBS MCHC (31 - 37 g/dL) 34 33 My Orders: My Orders Procedure Date/time Status CBC with AUTO DIFF 03/03 0500 Active PACKED CELLS 03/02 1023 Active VITAL SIGNS, SaO2, MONITOR 03/02 UNK Active Plan Activity: PT consultation Diet: Continue current Additional Comments: HGB fell to 7.0g. Transfusing two units. Dressing changed and wound clean. The thigh is swollen from bleeding. AIf a third unit has to be transfused then would like to discontinue heparin due to active bleeding. Subjective General No chest pain just hip pain. Receiving two units of packed cells today. The dilaudid 0.25mg IV helps the pain. Physical Exam Vital Signs / I&Os Vital Signs Date Time Temp Pulse Resp B/P Pulse O2 O2 Flow FiO2 Ox Delivery Rate 03/02 1740 98.8 101 18 127/40 100 NC/FT 2.0 03/02 1644 99.3 102 18 140/52 100 NC/FT 2.0 03/02 1545 98.6 97 18 134/51 100 NC/FT 2.0 03/02 1517 97 18 141/53 100 NC/FT 2.0 03/02 1452 98.6 98 18 134/51 100 03/02 1100 2.0 03/02 1033 97.9 93 16 90/42 95 Room Air 03/02 1032 2.0 03/02 0946 90 11 100 03/02 0752 93 13 100 03/02 0647 98.2 80 14 102/41 98 Room Air 03/02 0526 88 10 95 03/02 0303 91 10 96 03/02 0241 98.4 93 14 110/52 99 Room Air 03/02 0134 90 10 99 03/01 2315 80 18 98 03/01 2303 99.0 90 15 115/57 98 Room Air 03/01 2101 Room Air 03/01 2020 93 14 96 03/01 1817 98.8 84 16 82/57 98 Room Air I&O 03/01 0800 03/01 1600 03/02 0000 Intake Total 8398 975 9555 Output Total 370 375 200 Balance 1363 -115 1000 Extremities No calf tenderness. Neurological foot flexion and dorsiflexion full strength Psych/Mental Status confused at times Assessment and Plan Problem List 1. Fracture of femoral neck, left Status Acute Onset Date 02/27/17 2. Anemia due to blood loss, acute
[2017-03-03] VITALS (13 sets, daily range): BP systolic 94–145; BP diastolic 45–77
--- NOTE | 2017-03-03 14:08 | Progress Note ---
Subjective General Patient seen and examined. Patient's mentation is much more improved even more so than yesterday. However patient did not respond appropriately to unit 2 units of PRBCs transfused yesterday. Will repeat CBC in the afternoon and look for whether this is continuously a low hemoglobin. Constitutional Denies: Fever, Chills, Sweats, Weakness, Malaise, Other. Eyes Denies: Pain, Vision Change, Conjunctival Inflammation, Eyelid Inflammation, Redness, Other. Respiratory Denies: Cough, Dry, SOB w/exertion, Wheezing, Hemoptysis, Pleuritic Pain, Sputum , Other. Cardiovascular Denies: Chest Pain, Palpitations, Orthopnea, PND, Edema, Light-headedness, Other. Gastrointestinal Denies: Nausea, Vomiting, Abdominal Pain, Diarrhea, Constipation, Melena, Hematochezia, Other. Musculoskeletal Leg Pain. Denies: Neck Pain, Shoulder Pain, Arm Pain, Back Pain, Hand Pain, Foot Pain, Other. Skin Denies: Rash, Lesions, Jaundice, Bruising, Other. Physical Exam Vital Signs / I&Os Vital Signs Date Time Temp Pulse Resp B/P Pulse O2 O2 Flow FiO2 Ox Delivery Rate 03/03 1043 98.4 91 16 125/45 96 Nasal 1.0 Cannula 03/03 0737 1.0 03/03 0625 99.0 92 16 124/50 100 Nasal 2.0 Cannula 03/03 0322 98.8 67 15 132/77 96 Nasal 2.0 Cannula 03/03 0110 Nasal 2.0 Cannula 03/02 2204 99.1 96 18 142/46 100 NC/FT 2.0 03/02 2100 99.1 100 18 147/54 100 NC/FT 2.0 03/02 2000 99.3 106 18 148/60 100 NC/FT 2.0 03/02 1929 99.3 100 18 140/51 100 NC/FT 2.0 03/02 1911 98.8 109 18 147/67 100 NC/FT 2.0 03/02 1801 98.8 101 18 140/51 100 NC/FT 2.0 03/02 1740 98.8 101 18 127/40 100 NC/FT 2.0 03/02 1700 NC/FT 2.0 03/02 1644 99.3 102 18 140/52 100 NC/FT 2.0 03/02 1545 98.6 97 18 134/51 100 NC/FT 2.0 03/02 1517 97 18 141/53 100 NC/FT 2.0 03/02 1452 98.6 98 18 134/51 100 I&O 03/02 0800 03/02 1600 03/03 0000 Intake Total 4023 534 7485 Output Total 150 725 550 Balance 1622 76 835 General Appearance Alert, Oriented X3, No acute distress HEENT Atraumatic, PERRLA, Moist mucous membranes Lungs Clear to auscultation Neck Supple, No JVD, No masses Cardiovascular Regular rate and rhythm, No murmurs, gallops, rubs Abdomen Soft, No tenderness, No guarding Extremities No edema, Normal pulses, No tenderness Skin No Breakdown Psych/Mental Status - slightly confused, but only after pain meds - as per this is his baseline LAB Results Laboratory Tests 03/02 03/03 03/03 2230 0501 0950 Chemistry Plasma Sodium (136 - 145 mmol/L) 140 Plasma Potassium (3.5 - 5.1 mmol/L) 4.1 Plasma Chloride (98 - 107 mmol/L) 106 CO2 (Enzymatic) (21 - 32 mmol/L) 29 BUN (7 - 18 mg/dL) 21 Creatinine (0.6 - 1.3 mg/dL) 0.9 Est GFR ( Amer) (mL/min) >60 Est GFR (Non-Af Amer) (mL/min) >60 Glucose (70 - 110 mg/dL) 115 Plasma Calcium (8.5 - 10.1 mg/dL) 7.6 Ammonia (11 - 32 umol/L) 23 Hematology WBC (4.5 - 11.5 K/uL) 7.7 RBC (4.50 - 5.90 M/uL) 2.40 Hgb (13.5 - 17.5 gm/dL) 8.1 7.9 Hct (41.0 - 53.0 %) 23.9 23.3 MCV (80 - 100 fL) 97 MCH (26 - 34 pg) 33 RDW (11.6 - 14.8 %) 16.1 Neut % (Auto) (50 - 75 %) 59.9 Lymph % (Auto) (25 - 40 %) 24.0 [place] % (Auto) (3 - 14 %) 13.8 Eos % (Auto) (0 - 4 %) 1.9 Baso % (Auto) (0 - 2 %) 0.4 Plt Count, EDTA (150 - 400 K/uL) 86 PUBS MCHC (31 - 37 g/dL) 34 Assessment and Plan Problem List 1. Fracture of femoral neck, left Status Acute Onset Date 02/27/17 Plan Patient is status post day 2 of his bipolar hip prosthesis placement Patient was working with physical therapy however patient is a 3 person assist at the moment Currently wound looks appropriate without any evidence of hematoma or blood accumulation We'll continue with pain control keeping in mind the patient is very sensitive to opiates due to his cirrhosis 2. Alcoholic cirrhosis of liver Status Chronic Onset Date Unknown Plan the patient has a known history of alcoholic cirrhosis Patient is very sensitive to opiate medications Patient's ammonia has returned to normal level after the use of lactulose and rifaximin We'll continue to trend ammonia and watch for waiting or waxing mental status 3. Anemia due to blood loss, acute Plan Patient has seen to have a continuously dropping hemoglobin since admission At first the patient was seen to have a dropping hemoglobin secondary to dilution However patient was transfused 2 units last night and had and had a suboptimal response We'll repeat CBC in the afternoon We'll transfuse if necessary We'll obtain stool guaiac for possible gastrointestinal bleed
--- NOTE | 2017-03-03 17:17 | Progress Note ---
Subjective General No chest pain, obtained from the patient this AM. He has pain everywhere but mostly the left hip. Physical Exam Vital Signs / I&Os Vital Signs Date Time Temp Pulse Resp B/P Pulse O2 O2 Flow FiO2 Ox Delivery Rate 03/03 1415 99.0 96 16 132/59 96 Nasal 1.0 Cannula 03/03 1043 98.4 91 16 125/45 96 Nasal 1.0 Cannula 03/03 0845 Nasal 1.0 Cannula 03/03 0737 1.0 03/03 0625 99.0 92 16 124/50 100 Nasal 2.0 Cannula 03/03 0322 98.8 67 15 132/77 96 Nasal 2.0 Cannula 03/03 0110 Nasal 2.0 Cannula 03/02 2204 99.1 96 18 142/46 100 NC/FT 2.0 03/02 2100 99.1 100 18 147/54 100 NC/FT 2.0 03/02 2000 99.3 106 18 148/60 100 NC/FT 2.0 03/02 1929 99.3 100 18 140/51 100 NC/FT 2.0 03/02 1911 98.8 109 18 147/67 100 NC/FT 2.0 03/02 1801 98.8 101 18 140/51 100 NC/FT 2.0 03/02 1740 98.8 101 18 127/40 100 NC/FT 2.0 I&O 03/02 0800 03/02 1600 03/03 0000 Intake Total 6980 647 1187 Output Total 150 725 550 Balance 1622 76 835 General Appearance Somnolent Extremities Complains of pain by grimacing, whether I sqeeze the calfs or paress on the anterior legs bilaterally. Psych/Mental Status Confused LAB Results Laboratory Tests 03/02 03/03 03/03 03/03 2230 0501 0950 1453 Chemistry Plasma Sodium (136 - 145 mmol/L) 140 Plasma Potassium (3.5 - 5.1 mmol/L) 4.1 Plasma Chloride (98 - 107 mmol/L) 106 CO2 (Enzymatic) (21 - 32 mmol/L) 29 BUN (7 - 18 mg/dL) 21 Creatinine (0.6 - 1.3 mg/dL) 0.9 Est GFR ( Amer) (mL/min) >60 Est GFR (Non-Af Amer) (mL/min) >60 Glucose (70 - 110 mg/dL) 115 Plasma Calcium (8.5 - 10.1 mg/dL) 7.6 Ammonia (11 - 32 umol/L) 23 Hematology WBC (4.5 - 11.5 K/uL) 7.7 RBC (4.50 - 5.90 M/uL) 2.40 Hgb (13.5 - 17.5 gm/dL) 8.1 7.9 7.8 Hct (41.0 - 53.0 %) 23.9 23.3 23.2 MCV (80 - 100 fL) 97 MCH (26 - 34 pg) 33 RDW (11.6 - 14.8 %) 16.1 Neut % (Auto) (50 - 75 %) 59.9 Lymph % (Auto) (25 - 40 %) 24.0 [place] % (Auto) (3 - 14 %) 13.8 Eos % (Auto) (0 - 4 %) 1.9 Baso % (Auto) (0 - 2 %) 0.4 Plt Count, EDTA (150 - 400 K/uL) 86 PUBS MCHC (31 - 37 g/dL) 34 Plan Assessment He sat on edge of bed with PT. followup H/H at 15:00 today shows HGB 7.8 similar to 7.9 at 05:00 this AM Will follow CBC tomorrow.
[2017-03-04] VITALS (7 sets, daily range): BP systolic 96–119; BP diastolic 41–55
--- NOTE | 2017-03-04 05:05 | Progress Note ---
Subjective General Note Date: March 04, 2017 Admission Date: February 28, 2017 Hospital Day: 5 PCP: Gerardo [place] Status: Inpatient, a few Advanced Directive: NO CODE Room: 208 Admission History: The patient is a 72-year-old white male with a significant past medical history of alcoholic cirrhosis, gastroesophageal reflux, alcoholic polyneuropathy, hypertension, BPH, who presented to [facility] emergency department on the day of admission secondary to complaints of fall with left hip pain. [facility] ER evaluation was consistent with subtrochanteric fracture left hip. Dr. Fredrick Boogie ( orthopedics) was contacted and requested the patient be admitted by the hospitalist service. Secondary to the above, the patient was admitted by Jesu Morris M.D. for further evaluation and treatment. For other history present illness, past medical history, family history, social history, review of systems, and admission physical examination please see the patient's history and physical examination and ER visit note in the patient's medical record. Subjective: The patient states she is doing fairly well today. Pain adequately controlled. Eating without problems. No specific complaints Patient requests: None Medications and Allergies Medications Current Medications Sig/Otilia Start time Last Medication Dose Route Stop Time Status Admin Sodium Chloride 250 ML .[FOR TRANSFUSION] 03/03 1715 AC IV Oxycodone HCl 5 MG Q3H PRN 03/02 1730 AC 03/03 PO 204 Lactulose 20 GM QID 03/02 1200 AC 03/03 PO 1259 Famotidine 20 MG DAILY 03/02 0900 AC 03/03 PO 0824 Gabapentin 300 MG QHS 02/28 2100 AC 03/03 PO 2049 Tamsulosin HCl 0.4 MG QHS 02/28 2100 AC 03/03 PO 2049 Folic Acid 1 MG DAILY 02/28 0900 AC 03/03 PO 0824 Rifaximin 550 MG BID 02/28 0900 AC 03/03 PO 2049 Thiamine HCl 100 MG DAILY 02/28 0900 AC 03/03 PO 0823 Ondansetron HCl 4 MG Q6H PRN 02/28 0145 AC IV Sodium Chloride 1,000 ML ASDIRECTED 02/28 0145 AC 03/03 IV 0723 Allergies Coded Allergies: Ampicillin (02/28/17) Valsartan (From DIOVAN) (02/28/17) Reconcile Medications Scheduled Medications Folic Acid (Folic Acid 1 MG) 1 MG TAB 1 MG PO DAILY (Reported) Gabapentin 300 MG CAP 300 MG PO HS NEUROPATHY (Reported) Magnesium Oxide (Magnesium) 400 MG TAB 400 MG PO BID (Reported) Pantoprazole Sodium (Pantoprazole Sodium 40 MG) 40 MG TAB 40 MG PO BID ( Reported) Rifaximin (Xifaxan) 550 MG TAB 550 MG PO BID (Reported) Simethicone (Mylicon Equivalent) 80 MG CHW 80 MG PO TID (Reported) Skin Protectants, Misc. (Eucerin) CRE (Unknown Dose) BID (Reported) Tamsulosin HCl (Flomax) 0.4 MG CAP 0.4 MG PO DAILY (Reported) Thiamine HCl 100 MG TAB 100 MG PO DAILY (Reported) Physical Exam Vital Signs / I&Os Vital Signs Date Time Temp Pulse Resp B/P Pulse O2 O2 Flow FiO2 Ox Delivery Rate 03/04 0233 99.1 112 15 102/55 100 Nasal 1.0 Cannula 03/04 0040 Nasal 1.0 Cannula 03/036 99.1 108 14 98/54 100 Nasal 1.0 Cannula 03/03 2256 130 120/53 03/03 2233 104 94/47 03/03 2222 99.0 113 17 96/64 100 Nasal 1.0 Cannula 03/036 99.0 123 16 96/51 100 Nasal 1.0 Cannula 03/035 99.0 135 16 124/54 100 Room Air 03/03 2033 99.0 94 18 128/60 91 03/03 2017 99.1 94 18 145/48 97 03/03 1810 99.1 95 16 112/48 97 Nasal 1.0 Cannula 03/03 1630 Nasal 1.0 Cannula 03/03 1415 99.0 96 16 132/59 96 Nasal 1.0 Cannula 03/03 1043 98.4 91 16 125/45 96 Nasal 1.0 Cannula 03/03 0845 Nasal 1.0 Cannula 03/03 0737 1.0 03/03 0625 99.0 92 16 124/50 100 Nasal 2.0 Cannula I&O 03/04 0000 03/03 1600 03/03 0800 Intake Total 760 759 630 Output Total 375 700 375 Balance 385 59 255 General Appearance Alert, Cooperative, No acute distress Lungs Normal air movement, scattered rhonchi. Cardiovascular Normal S1 and S2, irregular rhythm, tachycardia Abdomen Normal bowel sounds, Soft, No tenderness, No guarding Extremities No cyanosis, No clubbing Neurological Cranial nerves intact, No lateralizing signs Psych/Mental Status Mood normal, Confused LAB Results Laboratory Tests 03/03 03/03 03/03 03/03 1700 1700 1453 0950 Chemistry Ammonia (11 - 32 umol/L) 23 Hematology Hgb (13.5 - 17.5 gm/dL) 7.8 Hct (41.0 - 53.0 %) 23.2 Other Body Source Gastric Occult Blood Cancelled Stool Occult Blood Pending Stl Occult Blood (ICT) (NEGATIVE) NEGATIVE Occult Blood (ICT) #2 (NEGATIVE) Pending Occult Blood (ICT) #3 (NEGATIVE) Pending Assessment and Plan Problem List 1. Atrial fibrillation Status Acute Onset Date Unknown Plan -Findings of new onset atrial fibrillation this a.m. -A. fib with rapid ventricular response -Heart rate improved with use of IV beta blockers, switch to oral beta blockers -Check BNP, troponin, echocardiogram, and TSH -Monitor -Possible discharge 1-2 days if stable -Patient at high risk for bleeding secondary to cirrhosis did not feel patient's candidate for anticoagulation. 2. Fracture of femoral neck, left Status Acute Onset Date 02/27/17 Plan -Patient presented with findings of fracture femoral neck -Status post ORIF -Follow-up with orthopedics -Plan discharge to [facility] facility in a.m. if stable 3. Alcoholic cirrhosis of liver Status Chronic Onset Date Unknown Plan -Patient with findings of alcoholic cirrhosis -Mild elevation of bilirubin -Ammonia level improved -Continue lactulose/rifaximin with goal of 4 formed BMs per day -Monitor 4. BPH (benign prostatic hyperplasia) Status Chronic Onset Date Unknown Plan -Stable -Not problematic -Continue Flomax 5. Alcoholic peripheral neuropathy Status Chronic Onset Date Unknown Plan -Stable -No further evaluation -Outpatient follow up with PCP -Continue gabapentin 6. Gastroesophageal reflux Status Chronic Onset Date Unknown Plan -Stable -Continue famotidine -Monitor 7. Anemia Status Acute Onset Date Unknown Plan -Patient with findings of anemia requiring transfusion -3 units packed RBCs transfused -Stool Hemoccult negative -No signs of significant bleeding. -Iron studies/B12 within normal limits -Monitor Current status: Fair, unstable Anticipated discharge date: Anticipated discharge in 1-2 days with stable status Anticipated discharge placement: alf facility Patient care time: Time in chart review, patient interview, physical exam, CPOE, and care documentation: 35 mins Visit to patient today: 2 Complexity of care: High DVT prophylaxis: SCD E&M Codes Rounding: Inpt-High/[id number]
--- NOTE | 2017-03-04 17:51 | Progress Note ---
Subjective Other The nurse reported to me that his appetite is poor. He has been somnolent nost of the day and would not get up with PT. Dr. Barahona medical note appreciated. See that he was given a third unit of blood. He went into atrial fibrillation today, rate controlled with medication. Anti- coagualtion was not started, per Dr. Morris. Physical Exam Vital Signs / I&Os Vital Signs Date Time Temp Pulse Resp B/P Pulse O2 O2 Flow FiO2 Ox Delivery Rate 03/04 1652 Nasal 1.0 Cannula 03/04 1440 99.7 79 16 110/50 100 Nasal 1.0 Cannula 03/04 1022 97.9 102 16 105/48 99 Nasal 1.0 Cannula 03/04 0850 Nasal 1.0 Cannula 03/04 0832 1.0 03/04 0804 102 18 105/44 98 Nasal 1.0 Cannula 03/04 0626 98.2 120 16 119/48 100 Nasal 1.0 Cannula 03/04 0233 99.1 112 15 102/55 100 Nasal 1.0 Cannula 03/04 0040 Nasal 1.0 Cannula 03/03 2346 99.1 108 14 98/54 100 Nasal 1.0 Cannula 03/03 2256 130 120/53 03/03 2233 104 94/47 03/03 2222 99.0 113 17 96/64 100 Nasal 1.0 Cannula 03/03 2136 99.0 123 16 96/51 100 Nasal 1.0 Cannula 03/03 2045 99.0 135 16 124/54 100 Room Air 03/03 2033 99.0 94 18 128/60 91 03/03 2017 99.1 94 18 145/48 97 03/03 1810 99.1 95 16 112/48 97 Nasal 1.0 Cannula I&O 03/03 0800 03/03 1600 03/04 0000 Intake Total 630 759 760 Output Total 375 700 375 Balance 255 59 385 General Appearance Eyes closed non-communicative although staff says he speak to them at times Extremities No calf tenderness. No heel pressure sores. LAB Results Laboratory Tests 03/04 03/04 0523 1204 Chemistry Plasma Sodium (136 - 145 mmol/L) 141 Plasma Potassium (3.5 - 5.1 mmol/L) 4.3 Plasma Chloride (98 - 107 mmol/L) 107 CO2 (Enzymatic) (21 - 32 mmol/L) 29 BUN (7 - 18 mg/dL) 17 Creatinine (0.6 - 1.3 mg/dL) 0.8 Est GFR ( Amer) (mL/min) >60 Est GFR (Non-Af Amer) (mL/min) >60 Glucose (70 - 110 mg/dL) 93 Plasma Calcium (8.5 - 10.1 mg/dL) 7.7 Plasma Magnesium (1.8 - 2.4 mg/dL) 1.6 Total Bilirubin (0.0 - 1.0 mg/dL) 2.0 AST (15 - 37 U/L) 43 ALT (12 - 78 U/L) 21 Alkaline Phosphatase (46 - 116 U/L) 59 Troponin (0.00 - 1.5 ng/mL) <0.05 <0.05 Total Protein (6.4 - 8.2 g/dL) 4.1 Albumin (3.3 - 5.0 g/dL) 2.0 TSH 3rd Generation (0.30 - 3.74 uIU/mL) 1.762 Hematology WBC (4.5 - 11.5 K/uL) 6.6 RBC (4.50 - 5.90 M/uL) 2.64 Hgb (13.5 - 17.5 gm/dL) 8.6 Hct (41.0 - 53.0 %) 25.6 MCV (80 - 100 fL) 97 MCH (26 - 34 pg) 33 RDW (11.6 - 14.8 %) 17.5 Neut % (Auto) (50 - 75 %) 57.0 Lymph % (Auto) (25 - 40 %) 23.4 [place] % (Auto) (3 - 14 %) 16.1 Eos % (Auto) (0 - 4 %) 3.2 Baso % (Auto) (0 - 2 %) 0.3 Plt Count, EDTA (150 - 400 K/uL) 103 PUBS MCHC (31 - 37 g/dL) 34 Plan Assessment He would not get up with PT today. Will follow CBC tomorrow. Try switching his pain med to tramadol from oxycodone
[2017-03-05 02:22] VITALS: BP 112/51
[2017-03-05 06:41] VITALS: BP 99/43
--- NOTE | 2017-03-05 06:58 | Progress Note ---
Subjective General Note Date: March 05, 2017 Admission Date: February 28, 2017 Hospital Day: 6 PCP: Gerardo nSow Status: Inpatient, ACU Advanced Directive: NO CODE Room: 208 Admission History: The patient is a 72-year-old white male with a significant past medical history of alcoholic cirrhosis, gastroesophageal reflux, alcoholic polyneuropathy, hypertension, BPH, who presented to [facility] emergency department on the day of admission secondary to complaints of fall with left hip pain. [facility] ER evaluation was consistent with subtrochanteric fracture left hip. Dr. Fredrick Boogie ( orthopedics) was contacted and requested the patient be admitted by the hospitalist service. Secondary to the above, the patient was admitted by Jesu Morris M.D. for further evaluation and treatment. For other history present illness, past medical history, family history, social history, review of systems, and admission physical examination please see the patient's history and physical examination and ER visit note in the patient's medical record. Subjective: Patient remains lethargic at this time. Appropriate in most answers to questioning. Cooperative Patient requests: None Medications and Allergies Medications Current Medications Sig/Otilia Start time Last Medication Dose Route Stop Time Status Admin Tramadol HCl 50 MG Q6H PRN 03/04 1800 AC 03/04 PO 2219 Metoprolol Tartrate 25 MG Q8H 03/04 1430 AC 03/05 PO 0553 Magnesium Sulfate 2 GM NOW STA 03/04 0740 CAN IV 03/04 0741 Sodium Chloride 250 ML .[FOR TRANSFUSION] 03/03 1715 AC IV Lactulose 20 GM QID 03/02 1200 AC 03/05 PO 0553 Famotidine 20 MG DAILY 03/02 0900 AC 03/04 PO 0808 Gabapentin 300 MG QHS 02/28 2100 AC 03/04 PO 2219 Tamsulosin HCl 0.4 MG QHS 02/28 2100 AC 03/04 PO 2218 Folic Acid 1 MG DAILY 02/28 0900 AC 03/04 PO 0808 Rifaximin 550 MG BID 02/28 0900 AC 03/04 PO 2218 Thiamine HCl 100 MG DAILY 02/28 0900 AC 03/04 PO 0808 Ondansetron HCl 4 MG Q6H PRN 02/28 0145 AC IV Sodium Chloride 1,000 ML ASDIRECTED 02/28 0145 AC 03/05 IV 0553 Allergies Coded Allergies: Ampicillin (02/28/17) Valsartan (From DIOVAN) (02/28/17) Reconcile Medications Scheduled Medications Folic Acid (Folic Acid 1 MG) 1 MG TAB 1 MG PO DAILY (Reported) Gabapentin 300 MG CAP 300 MG PO HS NEUROPATHY (Reported) Magnesium Oxide (Magnesium) 400 MG TAB 400 MG PO BID (Reported) Pantoprazole Sodium (Pantoprazole Sodium 40 MG) 40 MG TAB 40 MG PO BID ( Reported) Rifaximin (Xifaxan) 550 MG TAB 550 MG PO BID (Reported) Simethicone (Mylicon Equivalent) 80 MG CHW 80 MG PO TID (Reported) Skin Protectants, Misc. (Eucerin) CRE (Unknown Dose) BID (Reported) Tamsulosin HCl (Flomax) 0.4 MG CAP 0.4 MG PO DAILY (Reported) Thiamine HCl 100 MG TAB 100 MG PO DAILY (Reported) Physical Exam Vital Signs / I&Os Vital Signs Date Time Temp Pulse Resp B/P Pulse O2 O2 Flow FiO2 Ox Delivery Rate 03/05 0641 97.7 58 16 99/43 100 Nasal 1.0 Cannula 03/05 0222 99.0 68 18 112/51 100 Nasal 1.0 Cannula 03/04 2345 Nasal 1.0 Cannula 03/04 2229 98.8 70 18 111/41 100 Nasal 1.0 Cannula 03/04 2219 73 03/04 1810 99.7 74 18 96/42 100 Nasal 1.0 Cannula 03/04 1652 Nasal 1.0 Cannula 03/04 1632 98 Nasal 1.0 Cannula 03/04 1630 90 Room Air 03/04 1440 99.7 79 16 110/50 100 Nasal 1.0 Cannula 03/04 1022 97.9 102 16 105/48 99 Nasal 1.0 Cannula 03/04 0850 Nasal 1.0 Cannula 03/04 0832 1.0 03/04 0804 102 18 105/44 98 Nasal 1.0 Cannula I&O 03/05 0000 03/04 1600 03/04 0800 Intake Total 649 438 663 Output Total 100 1000 600 Balance 549 -562 63 General Appearance Cooperative, No acute distress, lethargic Lungs Clear to auscultation, Normal air movement Cardiovascular Normal S1 and S2, irregular rhythm, rate controlled Abdomen Normal bowel sounds, Soft, No tenderness Extremities No cyanosis, No clubbing Neurological Cranial nerves intact, No lateralizing signs Psych/Mental Status Mental status normal, Mood normal LAB Results Laboratory Tests 03/05 03/04 0545 1204 Chemistry Plasma Magnesium (1.8 - 2.4 mg/dL) 1.9 Troponin (0.00 - 1.5 ng/mL) <0.05 Hematology WBC (4.5 - 11.5 K/uL) 7.4 RBC (4.50 - 5.90 M/uL) 2.63 Hgb (13.5 - 17.5 gm/dL) 8.6 Hct (41.0 - 53.0 %) 25.4 MCV (80 - 100 fL) 97 MCH (26 - 34 pg) 33 RDW (11.6 - 14.8 %) 17.2 Neut % (Auto) (50 - 75 %) 65.0 Lymph % (Auto) (25 - 40 %) 16.4 [place] % (Auto) (3 - 14 %) 16.8 Eos % (Auto) (0 - 4 %) 1.5 Baso % (Auto) (0 - 2 %) 0.3 Plt Count, EDTA (150 - 400 K/uL) 98 PUBS MCHC (31 - 37 g/dL) 34 Assessment and Plan Problem List 1. Atrial fibrillation Status Acute Onset Date Unknown Plan -Rate controlled to slightly bradycardic -We'll decrease Lopressor to 12.5 mg by mouth 3 times a day -Monitor -Patient not candidate for anticoagulation secondary to cirrhosis high risk of GI bleeding 2. Anemia Status Acute Onset Date Unknown Plan -Mild -H&H stable at 8.6/25.4 -Iron studies B12 unremarkable -Stool Hemoccult negative for blood -Monitor 3. Gastroesophageal reflux Status Chronic Onset Date Unknown Plan -Stable -No further evaluation -Continue present therapy 4. Alcoholic peripheral neuropathy Status Chronic Onset Date Unknown Plan -Stable -No further evaluation 5. BPH (benign prostatic hyperplasia) Status Chronic Onset Date Unknown Plan -Patient with findings of BPH, urinary outlet obstruction -Monitor -Black catheter as necessary 6. Alcoholic cirrhosis of liver Status Chronic Onset Date Unknown Plan -Stable -No further evaluation -Monitor -Findings of a hepatic and cephalopathy improved -Continue with rifaximin/lactulose 7. Fracture of femoral neck, left Status Acute Onset Date 02/27/17 Plan -Patient status post femoral neck fracture -Follow per orthopedics -Ready for discharge to intermediate facility for rehabilitative care Current status: Fair, improved Anticipated discharge date: Today [facility]ticipated [facility] placement[facility] prison facility Patient care time: Time in chart review, patient interview, physical exam, CPOE, and care documentation: Greater than 30 mins Visit to patient today: 1 Complexity of care: High DVT prophylaxis: SCD E&M Codes Rounding: Inpt-High/[id number]
--- NOTE | 2017-03-05 07:01 | Discharge Summary ---
Discharge Summary Report Admit Date 02/28/17 Discharge Date 03/05/17 Admission Diagnosis 1. Left femoral neck fracture 2. Alcoholic cirrhosis 3. BPH 4. Alcoholic polyneuropathy 5. Gastroesophageal reflux Discharge Diagnosis 1. Left femoral neck fracture 2. Alcoholic cirrhosis 3. BPH 4. Alcoholic polyneuropathy 5. Gastroesophageal reflux 6. Anemia 7. Atrial fibrillation Brief History The patient is a 72-year-old white male with a significant past medical history of alcoholic cirrhosis, gastroesophageal reflux, alcoholic polyneuropathy, hypertension, BPH, who presented to [facility] emergency department on the day of admission secondary to complaints of fall with left hip pain. [facility] ER evaluation was consistent with subtrochanteric fracture left hip. Dr. Fredrick Boogie ( orthopedics) was contacted and requested the patient be admitted by the hospitalist service. Secondary to the above, the patient was admitted by Jesu Morris M.D. for further evaluation and treatment. For other history present illness, past medical history, family history, social history, review of systems, and admission physical examination please see the patient's history and physical examination and ER visit note in the patient's medical record. Hospital Course The following problems and their management were noted during the patient's hospitalization: 1. Left femoral neck fracture The patient was admitted with findings of left femoral neck fracture. The patient underwent ORIF by Dr. Morse on 02/28/17. Unremarkable postoperative course. The patient will be transferred to correction facility for ongoing rehabilitation. Outpatient follow-up with PCP/orthopedics. Activity and physical therapy orders per Dr. Morse 2. Alcoholic cirrhosis The patient has a history of alcoholic cirrhosis. He had mild hepatic encephalopathy. This responded to use of rifaximin and lactulose. Ammonia level was normal on discharge at 23. Outpatient follow-up with PCP/facility attending. Continue with rifaximin 550 mg by mouth twice a day lactulose 20 g by mouth twice a day. Low-salt diet. Continue to GI prophylaxis with Protonix. 3. BPH The patient has a long-standing history of BPH. He was treated with Flomax 0.4 mg by mouth daily. Adequate urinary stream on discharge. Outpatient follow-up with PCP/facility attending. 4. Alcoholic polyneuropathy The patient has a history of alcoholic polyneuropathy. This was treated with gabapentin 300 mg by mouth daily at bedtime. Patient's neuropathic pain was adequately controlled with this regimen. 5. Gastroesophageal reflux The patient has a history of gastroesophageal reflux. This was not problematic during the patient's hospital stay. He continued on Protonix 40 mg by mouth twice a day. 6. Anemia The patient had findings of anemia during his hospital stay. Serum iron studies , B12, folate were within normal limits. Stool, blood was negative. Outpatient follow-up with PCP/facility attending. H&H on discharge was noted to be 8.9/ 26.4 and stable. 7. Atrial fibrillation The patient has a history of new onset atrial fibrillation. Rate was well controlled with the use of Lopressor 12.5 mg by mouth twice a day. The patient is not a candidate for anticoagulation secondary to high risk of bleeding with cirrhosis and portal hypertension. Echocardiogram was obtained but not available at the time of discharge. Echocardiogram showed no significant valvular abnormalities but did show mild global hypokinesis with ejection fraction in the 40-45% range. The patient exhibited no signs of CHF during his hospital stay. Echo results will be 4 to the patient's facility attending at [facility]. Would recommend consideration of ARB/ RICARDO inhibitor and low-dose diuretic as necessary based on cardiac evaluation. Lab/Imaging Laboratory Tests 03/05 03/04 0545 1204 Chemistry Plasma Magnesium (1.8 - 2.4 mg/dL) 1.9 Troponin (0.00 - 1.5 ng/mL) <0.05 Hematology WBC (4.5 - 11.5 K/uL) 7.4 RBC (4.50 - 5.90 M/uL) 2.63 Hgb (13.5 - 17.5 gm/dL) 8.6 Hct (41.0 - 53.0 %) 25.4 MCV (80 - 100 fL) 97 MCH (26 - 34 pg) 33 RDW (11.6 - 14.8 %) 17.2 Neut % (Auto) (50 - 75 %) 65.0 Lymph % (Auto) (25 - 40 %) 16.4 [place] % (Auto) (3 - 14 %) 16.8 Eos % (Auto) (0 - 4 %) 1.5 Baso % (Auto) (0 - 2 %) 0.3 Plt Count, EDTA (150 - 400 K/uL) 98 PUBS MCHC (31 - 37 g/dL) 34 Discharge Instructions/Meds For other recommendations regarding discharge diet, activity, followup, and discharge medications please see the patient's discharge instructions. Discharge condition: Fair, improved Greater than 30 min. was spent in the patient's discharge preparation including discharge interview and physical examination, progress note, discharge instructions, and discharge summary The patient was interviewed and examined on the day of discharge. E&M Codes Discharge: Inpt >30 min spent/[id number]
--- NOTE | 2017-03-05 10:18 | Progress Note ---
Subjective General No chest pain. Willing to flex his left knee 20 degrees and extend his knee on command. Physical Exam Vital Signs / I&Os Vital Signs Date Time Temp Pulse Resp B/P Pulse O2 O2 Flow FiO2 Ox Delivery Rate 03/05 0641 97.7 58 16 99/43 100 Nasal 1.0 Cannula 03/05 0222 99.0 68 18 112/51 100 Nasal 1.0 Cannula 03/04 2345 Nasal 1.0 Cannula 03/04 2229 98.8 70 18 111/41 100 Nasal 1.0 Cannula 03/04 2219 73 03/04 1810 99.7 74 18 96/42 100 Nasal 1.0 Cannula 03/04 1652 Nasal 1.0 Cannula 03/04 1632 98 Nasal 1.0 Cannula 03/04 1630 90 Room Air 03/04 1440 99.7 79 16 110/50 100 Nasal 1.0 Cannula 03/04 1022 97.9 102 16 105/48 99 Nasal 1.0 Cannula I&O 03/04 0800 03/04 1600 03/05 0000 Intake Total 663 438 649 Output Total 600 1000 100 Balance 63 -562 549 General Appearance No acute distress, Not oriented to place or fracture problem Extremities No tenderness in calfs. LAB Results Laboratory Tests 03/04 03/05 1204 0545 Chemistry Plasma Magnesium (1.8 - 2.4 mg/dL) 1.9 Troponin (0.00 - 1.5 ng/mL) <0.05 Hematology WBC (4.5 - 11.5 K/uL) 7.4 RBC (4.50 - 5.90 M/uL) 2.63 Hgb (13.5 - 17.5 gm/dL) 8.6 Hct (41.0 - 53.0 %) 25.4 MCV (80 - 100 fL) 97 MCH (26 - 34 pg) 33 RDW (11.6 - 14.8 %) 17.2 Neut % (Auto) (50 - 75 %) 65.0 Lymph % (Auto) (25 - 40 %) 16.4 [place] % (Auto) (3 - 14 %) 16.8 Eos % (Auto) (0 - 4 %) 1.5 Baso % (Auto) (0 - 2 %) 0.3 Plt Count, EDTA (150 - 400 K/uL) 98 PUBS MCHC (31 - 37 g/dL) 34 Plan Assessment He would not get up with PT today. Will follow CBC tomorrow. HGB stable for 24 hours at 8.6. Switched his pain med to tramadol from oxycodone. New a-fib managed by medicine
[2017-03-05 11:05] VITALS: BP 110/49
[2017-03-05 14:43] VITALS: BP 103/46
[2017-03-05 19:07] VITALS: BP 111/47
[2017-03-05 22:19] VITALS: BP 113/42
[2017-03-06] VITALS (7 sets, daily range): BP systolic 102–134; BP diastolic 46–78
--- NOTE | 2017-03-06 07:41 | Progress Note ---
Subjective General Note Date: March 06, 2017 Admission Date: February 28, 2017 Hospital Day: 7 PCP: Gerardo [place] Status: Inpatient, ACU Advanced Directive: NO CODE Room: 208 Admission History: The patient is a 72-year-old white male with a significant past medical history of alcoholic cirrhosis, gastroesophageal reflux, alcoholic polyneuropathy, hypertension, BPH, who presented to [facility] emergency department on the day of admission secondary to complaints of fall with left hip pain. [facility] ER evaluation was consistent with subtrochanteric fracture left hip. Dr. Fredrick Boogie ( orthopedics) was contacted and requested the patient be admitted by the hospitalist service. Secondary to the above, the patient was admitted by Jesu Morris M.D. for further evaluation and treatment. For other history present illness, past medical history, family history, social history, review of systems, and admission physical examination please see the patient's history and physical examination and ER visit note in the patient's medical record. Subjective: Patient much more alert and interactive. Mild pain. None Patient requests: None Medications and Allergies Medications Current Medications Sig/Otilia Start time Last Medication Dose Route Stop Time Status Admin Lactulose 20 GM BID 03/06 09 AC PO Metoprolol Tartrate 12.5 MG Q8H 03/05 1430 AC 03/06 PO 0651 Sodium Chloride 250 ML .[FOR TRANSFUSION] 03/03 1715 AC IV Famotidine 20 MG DAILY 03/02 0900 AC 03/05 PO 1104 Gabapentin 300 MG QHS 02/28 2100 AC 03/05 PO 2040 Tamsulosin HCl 0.4 MG QHS 02/28 2100 AC 03/05 PO 2040 Folic Acid 1 MG DAILY 02/28 0900 AC 03/05 PO 1104 Rifaximin 550 MG BID 02/28 0900 AC 03/05 PO 2040 Thiamine HCl 100 MG DAILY 02/28 0900 AC 03/05 PO 1104 Ondansetron HCl 4 MG Q6H PRN 02/28 0145 AC IV Sodium Chloride 1,000 ML ASDIRECTED 02/28 0145 AC 03/06 IV 0138 Allergies Coded Allergies: Ampicillin (02/28/17) Valsartan (From DIOVAN) (02/28/17) Reconcile Medications Scheduled Medications Folic Acid (Folic Acid 1 MG) 1 MG TAB 1 MG PO DAILY (Reported) Gabapentin 300 MG CAP 300 MG PO HS NEUROPATHY (Reported) Magnesium Oxide (Magnesium) 400 MG TAB 400 MG PO BID (Reported) Pantoprazole Sodium (Pantoprazole Sodium 40 MG) 40 MG TAB 40 MG PO BID ( Reported) Rifaximin (Xifaxan) 550 MG TAB 550 MG PO BID (Reported) Simethicone (Mylicon Equivalent) 80 MG CHW 80 MG PO TID (Reported) Skin Protectants, Misc. (Eucerin) CRE (Unknown Dose) BID (Reported) Tamsulosin HCl (Flomax) 0.4 MG CAP 0.4 MG PO DAILY (Reported) Thiamine HCl 100 MG TAB 100 MG PO DAILY (Reported) Physical Exam Vital Signs / I&Os Vital Signs Date Time Temp Pulse Resp B/P Pulse O2 O2 Flow FiO2 Ox Delivery Rate 03/06 0556 99.3 64 16 102/52 94 Room Air 03/06 0324 130/78 03/06 0320 99.1 71 16 104/46 93 Room Air 03/05 2219 99.7 79 16 113/42 93 Room Air 03/05 2042 0.0 03/05 1907 99.7 57 16 111/47 93 Room Air 03/05 1443 98.4 68 15 103/46 96 Room Air 0.0 03/05 1114 0.0 03/05 1105 98.2 64 16 110/49 96 Room Air 0.0 I&O 03/06 0000 03/05 1600 03/05 0800 Intake Total 50 773 592 Output Total 275 200 125 Balance -225 573 467 General Appearance Alert, Cooperative, No acute distress Lungs Clear to auscultation Cardiovascular Normal S1 and S2, irregular rhythm. Rate controlled Abdomen Normal bowel sounds, Soft, No tenderness Extremities No cyanosis, No clubbing Neurological Cranial nerves intact, No lateralizing signs Psych/Mental Status Confused LAB Results Laboratory Tests 03/06 03/06 03/05 0535 0535 1405 Chemistry Plasma Sodium (136 - 145 mmol/L) 138 Plasma Potassium (3.5 - 5.1 mmol/L) 4.1 Plasma Chloride (98 - 107 mmol/L) 105 CO2 (Enzymatic) (21 - 32 mmol/L) 28 BUN (7 - 18 mg/dL) 32 Creatinine (0.6 - 1.3 mg/dL) 1.0 Est GFR ( Amer) (mL/min) >60 Est GFR (Non-Af Amer) (mL/min) >60 Glucose (70 - 110 mg/dL) 91 Plasma Calcium (8.5 - 10.1 mg/dL) 7.6 Plasma Magnesium (1.8 - 2.4 mg/dL) 1.8 Total Bilirubin (0.0 - 1.0 mg/dL) 1.7 AST (15 - 37 U/L) 39 ALT (12 - 78 U/L) 22 Alkaline Phosphatase (46 - 116 U/L) 82 Ammonia (11 - 32 umol/L) 23 34 Total Protein (6.4 - 8.2 g/dL) 4.5 Albumin (3.3 - 5.0 g/dL) 2.1 Hematology WBC (4.5 - 11.5 K/uL) 7.6 RBC (4.50 - 5.90 M/uL) 2.70 Hgb (13.5 - 17.5 gm/dL) 8.9 Hct (41.0 - 53.0 %) 26.4 MCV (80 - 100 fL) 98 MCH (26 - 34 pg) 33 RDW (11.6 - 14.8 %) 17.5 Neut % (Auto) (50 - 75 %) Pending Lymph % (Auto) (25 - 40 %) Pending [place] % (Auto) (3 - 14 %) Pending Band Neutrophils % (0 - 8 %) Pending Plt Count, EDTA (150 - 400 K/uL) 107 PUBS MCHC (31 - 37 g/dL) 34 Assessment and Plan Problem List 1. Atrial fibrillation Status Acute Onset Date Unknown Plan -Patient with findings of atrial fibrillation -Check echocardiogram in a.m. -Rate control -Patient not candidate for anticoagulation secondary to end-stage liver disease -Monitor 2. Anemia Status Acute Onset Date Unknown Plan -Patient with persistent anemia -H&H stable -H&H 8.9/26.4 -Iron studies, B12 unremarkable -Stool Hemoccult negative -Monitor 3. Gastroesophageal reflux Status Chronic Onset Date Unknown Plan -Stable -No further evaluation 4. Alcoholic peripheral neuropathy Status Chronic Onset Date Unknown Plan -Stable -No further evaluation -Continue present therapy 5. BPH (benign prostatic hyperplasia) Status Chronic Onset Date Unknown Plan -Patient with history of BPH -DC Black in anticipation of discharge to correction facility -Monitor for urinary retention -Black catheter if necessary 6. Alcoholic cirrhosis of liver Status Chronic Onset Date Unknown Plan -Stable -Serum ammonia level has normalized -Continue with rifaximin/lactulose -Outpatient follow-up with PCP 7. Fracture of femoral neck, left Status Acute Onset Date 02/27/17 Plan -Stable -Ready for discharge to correction facility for rehabilitative care -See orthopedic notes Current status: Fair, improved Anticipated discharge date: Anticipated discharge tomorrow Anticipated discharge placement: shelter facility Patient care time: Time in chart review, patient interview, physical exam, CPOE, and care documentation: 25 mins Visit to patient today: 1 Complexity of care: Moderate DVT prophylaxis: SCD E&M Codes Rounding: Inpt-Moderate/[id number]
--- NOTE | 2017-03-06 07:41 | Progress Note ---
Subjective General Note Date: March 06, 2017 Admission Date: February 28, 2017 Hospital Day: 7 PCP: Gerardo [place] Status: Inpatient, ACU Advanced Directive: NO CODE Room: 208 Admission History: The patient is a 72-year-old white male with a significant past medical history of alcoholic cirrhosis, gastroesophageal reflux, alcoholic polyneuropathy, hypertension, BPH, who presented to [facility] emergency department on the day of admission secondary to complaints of fall with left hip pain. [facility] ER evaluation was consistent with subtrochanteric fracture left hip. Dr. Fredrick Boogie ( orthopedics) was contacted and requested the patient be admitted by the hospitalist service. Secondary to the above, the patient was admitted by Jesu Morris M.D. for further evaluation and treatment. For other history present illness, past medical history, family history, social history, review of systems, and admission physical examination please see the patient's history and physical examination and ER visit note in the patient's medical record. Subjective: Patient much more alert and interactive. Mild pain. None Patient requests: None Medications and Allergies Medications Current Medications Sig/Otilia Start time Last Medication Dose Route Stop Time Status Admin Lactulose 20 GM BID 03/06 09 AC PO Metoprolol Tartrate 12.5 MG Q8H 03/05 1430 AC 03/06 PO 0651 Sodium Chloride 250 ML .[FOR TRANSFUSION] 03/03 1715 AC IV Famotidine 20 MG DAILY 03/02 0900 AC 03/05 PO 1104 Gabapentin 300 MG QHS 02/28 2100 AC 03/05 PO 2040 Tamsulosin HCl 0.4 MG QHS 02/28 2100 AC 03/05 PO 2040 Folic Acid 1 MG DAILY 02/28 0900 AC 03/05 PO 1104 Rifaximin 550 MG BID 02/28 0900 AC 03/05 PO 2040 Thiamine HCl 100 MG DAILY 02/28 0900 AC 03/05 PO 1104 Ondansetron HCl 4 MG Q6H PRN 02/28 0145 AC IV Sodium Chloride 1,000 ML ASDIRECTED 02/28 0145 AC 03/06 IV 0138 Allergies Coded Allergies: Ampicillin (02/28/17) Valsartan (From DIOVAN) (02/28/17) Reconcile Medications Scheduled Medications Folic Acid (Folic Acid 1 MG) 1 MG TAB 1 MG PO DAILY (Reported) Gabapentin 300 MG CAP 300 MG PO HS NEUROPATHY (Reported) Magnesium Oxide (Magnesium) 400 MG TAB 400 MG PO BID (Reported) Pantoprazole Sodium (Pantoprazole Sodium 40 MG) 40 MG TAB 40 MG PO BID ( Reported) Rifaximin (Xifaxan) 550 MG TAB 550 MG PO BID (Reported) Simethicone (Mylicon Equivalent) 80 MG CHW 80 MG PO TID (Reported) Skin Protectants, Misc. (Eucerin) CRE (Unknown Dose) BID (Reported) Tamsulosin HCl (Flomax) 0.4 MG CAP 0.4 MG PO DAILY (Reported) Thiamine HCl 100 MG TAB 100 MG PO DAILY (Reported) Physical Exam Vital Signs / I&Os Vital Signs Date Time Temp Pulse Resp B/P Pulse O2 O2 Flow FiO2 Ox Delivery Rate 03/06 0556 99.3 64 16 102/52 94 Room Air 03/06 0324 130/78 03/06 0320 99.1 71 16 104/46 93 Room Air 03/05 2219 99.7 79 16 113/42 93 Room Air 03/05 2042 0.0 03/05 1907 99.7 57 16 111/47 93 Room Air 03/05 1443 98.4 68 15 103/46 96 Room Air 0.0 03/05 1114 0.0 03/05 1105 98.2 64 16 110/49 96 Room Air 0.0 I&O 03/06 0000 03/05 1600 03/05 0800 Intake Total 50 773 592 Output Total 275 200 125 Balance -225 573 467 General Appearance Alert, Cooperative, No acute distress Lungs Clear to auscultation Cardiovascular Normal S1 and S2, irregular rhythm. Rate controlled Abdomen Normal bowel sounds, Soft, No tenderness Extremities No cyanosis, No clubbing Neurological Cranial nerves intact, No lateralizing signs Psych/Mental Status Confused LAB Results Laboratory Tests 03/06 03/06 03/05 0535 0535 1405 Chemistry Plasma Sodium (136 - 145 mmol/L) 138 Plasma Potassium (3.5 - 5.1 mmol/L) 4.1 Plasma Chloride (98 - 107 mmol/L) 105 CO2 (Enzymatic) (21 - 32 mmol/L) 28 BUN (7 - 18 mg/dL) 32 Creatinine (0.6 - 1.3 mg/dL) 1.0 Est GFR ( Amer) (mL/min) >60 Est GFR (Non-Af Amer) (mL/min) >60 Glucose (70 - 110 mg/dL) 91 Plasma Calcium (8.5 - 10.1 mg/dL) 7.6 Plasma Magnesium (1.8 - 2.4 mg/dL) 1.8 Total Bilirubin (0.0 - 1.0 mg/dL) 1.7 AST (15 - 37 U/L) 39 ALT (12 - 78 U/L) 22 Alkaline Phosphatase (46 - 116 U/L) 82 Ammonia (11 - 32 umol/L) 23 34 Total Protein (6.4 - 8.2 g/dL) 4.5 Albumin (3.3 - 5.0 g/dL) 2.1 Hematology WBC (4.5 - 11.5 K/uL) 7.6 RBC (4.50 - 5.90 M/uL) 2.70 Hgb (13.5 - 17.5 gm/dL) 8.9 Hct (41.0 - 53.0 %) 26.4 MCV (80 - 100 fL) 98 MCH (26 - 34 pg) 33 RDW (11.6 - 14.8 %) 17.5 Neut % (Auto) (50 - 75 %) Pending Lymph % (Auto) (25 - 40 %) Pending [place] % (Auto) (3 - 14 %) Pending Band Neutrophils % (0 - 8 %) Pending Plt Count, EDTA (150 - 400 K/uL) 107 PUBS MCHC (31 - 37 g/dL) 34 Assessment and Plan Problem List 1. Atrial fibrillation Status Acute Onset Date Unknown Plan -Patient with findings of atrial fibrillation -Check echocardiogram in a.m. -Rate control -Patient not candidate for anticoagulation secondary to end-stage liver disease -Monitor 2. Anemia Status Acute Onset Date Unknown Plan -Patient with persistent anemia -H&H stable -H&H 8.9/26.4 -Iron studies, B12 unremarkable -Stool Hemoccult negative -Monitor 3. Gastroesophageal reflux Status Chronic Onset Date Unknown Plan -Stable -No further evaluation 4. Alcoholic peripheral neuropathy Status Chronic Onset Date Unknown Plan -Stable -No further evaluation -Continue present therapy 5. BPH (benign prostatic hyperplasia) Status Chronic Onset Date Unknown Plan -Patient with history of BPH -DC Black in anticipation of discharge to group home facility -Monitor for urinary retention -Black catheter if necessary 6. Alcoholic cirrhosis of liver Status Chronic Onset Date Unknown Plan -Stable -Serum ammonia level has normalized -Continue with rifaximin/lactulose -Outpatient follow-up with PCP 7. Fracture of femoral neck, left Status Acute Onset Date 02/27/17 Plan -Stable -Ready for discharge to group home facility for rehabilitative care -See orthopedic notes Current status: Fair, improved Anticipated discharge date: Anticipated discharge tomorrow [facility] Patient care time: Time in chart review, patient interview, physical exam, CPOE, and care documentation: 25 mins Visit to patient today: 1 Complexity of care: Moderate DVT prophylaxis: SCD E&M Codes Rounding: Inpt-Moderate/[id number]
--- NOTE | 2017-03-06 11:22 | Progress Note ---
Subjective General I asked patient if he wanted to live and he said "occaisionally". I told him that his pain would get progressively better, but he needed to get moving with PT to continue to live until he is well. Tramadol was discontinued by internal medicine; he has tylenol for pain. Physical Exam Vital Signs / I&Os Vital Signs Date Time Temp Pulse Resp B/P Pulse O2 O2 Flow FiO2 Ox Delivery Rate 03/06 0556 99.3 64 16 102/52 94 Room Air 03/06 0324 130/78 03/06 0320 99.1 71 16 104/46 93 Room Air 03/05 2219 99.7 79 16 113/42 93 Room Air 03/05 2042 0.0 03/05 1907 99.7 57 16 111/47 93 Room Air 03/05 1443 98.4 68 15 103/46 96 Room Air 0.0 03/05 1114 0.0 I&O 03/05 0800 / 1600 03/06 0000 Intake Total 592 773 50 Output Total 125 200 275 Balance 467 573 -225 General Appearance Alert, Mild distress Extremities No calf tenderness. Plan Assessment He would not get up with PT today. Will follow CBC tomorrow. HGB stable for 24 hours at 8.6. Switched his pain med to tramadol from oxycodone. New a-fib managed by medicine Plan TAke out the moon catheter after obtaining a urine C/S. HGB stable.
[2017-03-07 02:29] VITALS: BP 132/52
[2017-03-07 07:04] VITALS: BP 129/64
--- NOTE | 2017-03-07 08:49 | Progress Note ---
Subjective General Note Date: March 07, 2017 Admission Date: February 28, 2017 Hospital Day: 8 PCP: Gerardo Snow Status: Inpatient, ACU Advanced Directive: NO CODE Room: 208 Admission History: The patient is a 72-year-old white male with a significant past medical history of alcoholic cirrhosis, gastroesophageal reflux, alcoholic polyneuropathy, hypertension, BPH, who presented to [facility] emergency department on the day of admission secondary to complaints of fall with left hip pain. [facility] ER evaluation was consistent with subtrochanteric fracture left hip. Dr. Fredrick Boogie ( orthopedics) was contacted and requested the patient be admitted by the hospitalist service. Secondary to the above, the patient was admitted by Jesu Morris M.D. for further evaluation and treatment. For other history present illness, past medical history, family history, social history, review of systems, and admission physical examination please see the patient's history and physical examination and ER visit note in the patient's medical record. Subjective: The patient states he is doing well today. More alert. Ready for discharge. Pain adequately controlled Patient requests: None Medications and Allergies Medications Current Medications Sig/Otilia Start time Last Medication Dose Route Stop Time Status Admin Acetaminophen 650 MG Q6H PRN 03/06 0915 AC 03/06 PO 2058 Lactulose 20 GM BID 03/06 09 AC 03/06 PO 213 Metoprolol Tartrate 12.5 MG Q8H 03/05 1430 AC 03/07 PO 0750 Sodium Chloride 250 ML .[FOR TRANSFUSION] 03/03 1715 AC IV Famotidine 20 MG DAILY 03/02 09 AC 03/06 PO 08 Gabapentin 300 MG QHS 02/28 2100 AC 03/06 PO 2057 Tamsulosin HCl 0.4 MG QHS 02/28 2100 AC 03/06 PO 2056 Folic Acid 1 MG DAILY 02/28 09 AC 03/06 PO 08 Rifaximin 550 MG BID 02/28 09 AC 03/06 PO 2056 Thiamine HCl 100 MG DAILY 02/28 09 AC 03/06 PO 08 Ondansetron HCl 4 MG Q6H PRN 02/28 0145 AC IV Sodium Chloride 1,000 ML ASDIRECTED 02/28 0145 AC 03/06 IV 2244 Allergies Coded Allergies: Ampicillin (02/28/17) Valsartan (From DIOVAN) (02/28/17) Reconcile Medications Scheduled Medications Folic Acid (Folic Acid 1 MG) 1 MG TAB 1 MG PO DAILY (Reported) Gabapentin 300 MG CAP 300 MG PO HS NEUROPATHY (Reported) Lactulose (Lactulose 10 Gm/15 Ml) SUZANNE 20 GM PO BID Magnesium Oxide (Magnesium) 400 MG TAB 400 MG PO BID (Reported) Metoprolol Tartrate (Lopressor 25 MG) 25 MG TAB 12.5 MG PO BID Pantoprazole Sodium (Pantoprazole Sodium 40 MG) 40 MG TAB 40 MG PO BID ( Reported) Rifaximin (Xifaxan) 550 MG TAB 550 MG PO BID (Reported) Simethicone (Mylicon Equivalent) 80 MG CHW 80 MG PO TID (Reported) Skin Protectants, Misc. (Eucerin) CRE (Unknown Dose) BID (Reported) Tamsulosin HCl (Flomax) 0.4 MG CAP 0.4 MG PO DAILY (Reported) Thiamine HCl 100 MG TAB 100 MG PO DAILY (Reported) Scheduled PRN Medications Acetaminophen (Tylenol 325 MG) 325 MG TAB 325-650 MG PO Q6H PRN PAIN Physical Exam Vital Signs / I&Os Vital Signs Date Time Temp Pulse Resp B/P Pulse O2 O2 Flow FiO2 Ox Delivery Rate 03/07 0704 98.4 66 20 129/64 98 Room Air 0.0 03/07 0229 98.2 71 16 132/52 94 Room Air 03/06 2223 98.4 74 16 128/48 98 Room Air 07/ 1823 98.4 67 16 134/60 99 Room Air / 1436 98.1 69 16 120/46 97 Room Air 03/06 1234 Room Air 03/06 1200 98.2 67 16 118/53 93 Room Air I&O 03/07 0000 02 1600 07 0800 Intake Total 918 410 953 Output Total 450 470 300 Balance 468 -60 653 General Appearance Alert, Cooperative, No acute distress Lungs Clear to auscultation Cardiovascular Normal S1 and S2, irregular rhythm, rate controlled Abdomen Normal bowel sounds, Soft, No tenderness Extremities No cyanosis, No clubbing Neurological Cranial nerves intact, No lateralizing signs Psych/Mental Status Mood normal, slightly lethargic intermittently Assessment and Plan Problem List 1. Atrial fibrillation Status Acute Onset Date Unknown Plan -Rate controlled -Echocardiogram pending -No signs of CHF -Outpatient follow-up with adjustments in medical therapy based on echocardiography findings -Patient not candidate for anticoagulation secondary to risk of bleeding with hepatic disease 2. Anemia Status Acute Onset Date Unknown Plan -Stable -No signs of anemia secondary to B12/folate/iron deficiency -Outpatient follow-up 3. Alcoholic peripheral neuropathy Status Chronic Onset Date Unknown Plan -Stable -Tylenol when necessary -Gabapentin 300 mg by mouth daily at bedtime 4. BPH (benign prostatic hyperplasia) Status Chronic Onset Date Unknown Plan -Stable -Flomax 0.4 mg by mouth daily 5. Alcoholic cirrhosis of liver Status Chronic Onset Date Unknown Plan -Patient with history of alcoholic cirrhosis -Continue rifaximin, beta wilner, lactulose -Ammonia level improved -Low-salt diet 6. Fracture of femoral neck, left Status Acute Onset Date 02/27/17 Plan -Status improved -Outpatient follow-up with PCP/orthopedics -See orthopedics discharge instructions Current status: Fair, improved Anticipated discharge date: Today Anticipated discharge placement: group home facility Patient care time: Time in chart review, patient interview, physical exam, CPOE, and care documentation: Greater than 30 mins Visit to patient today: 1 Complexity of care: Moderate DVT prophylaxis: SCD For other recommendations regarding discharge diet, activity, followup, and discharge medications please see the patient's discharge instructions. Greater than 30 min. was spent in the patient's discharge preparation including discharge interview and physical examination, progress note, discharge instructions, and discharge summary E&M Codes Discharge: Inpt >30 min spent/[id number]
--- NOTE | 2017-03-07 09:40 | Progress Note ---
Subjective General Was sitting in a chair yesterday. Physical Exam Vital Signs / I&Os Vital Signs Date Time Temp Pulse Resp B/P Pulse O2 O2 Flow FiO2 Ox Delivery Rate 03/07 0704 98.4 66 20 129/64 98 Room Air 0.0 03/07 0229 98.2 71 16 132/52 94 Room Air 03/06 2223 98.4 74 16 128/48 98 Room Air 03/06 1823 98.4 67 16 134/60 99 Room Air 03/06 1436 98.1 69 16 120/46 97 Room Air 03/06 1234 Room Air 03/06 1200 98.2 67 16 118/53 93 Room Air I&O 03/06 0800 03/06 1600 03/07 0000 Intake Total 953 410 918 Output Total 300 470 450 Balance 653 -60 468 General Appearance Oriented X3, Cooperative Extremities No calf tenderness. LAB Results U/A negative for white cells and negative for bacteria. HGB 8.9 Plan Assessment He would not get up with PT today. Will follow CBC tomorrow. HGB stable for 24 hours at 8.6. Switched his pain med to tylenol due to confusion with narcotics New a-fib managed by medicine. Sat up in a chair for the first time yesterday. Plan TAke out the moon catheter after obtaining a urine C/S. HGB stable.
[2017-03-07 10:08] VITALS: BP 110/54
[2017-03-07] MEDS ORDERED: LACTULOSE PO (10:45)
[2017-03-07] MEDS ORDERED: TYLENOL325 MG PO (10:47)
--- NOTE | 2017-03-07 10:51 | Provider's Discharge Care Plan ---
Problem, Goal, Plan Problem List 1. Fracture of femoral neck, left Goals: Improve function, Improved health/wellness, Increase independence Instructions: Follow up as directed, Take meds as directed, Follow-up with orthopedics as directed. PT consultation on admission. Activity orders per orthopedics 2. Alcoholic cirrhosis of liver Goals: Improve disease control, Improve function, Improved health/wellness, Prevent disease progress Instructions: Follow up as directed, Take meds as directed, Avoid processed foods, Goal of lactulose therapy is 4 soft bowel movements per day. Avoid salt intake. 3. Anemia Goals: Improve disease control, Prevent disease progress Instructions: Follow up as directed, Take meds as directed, Have your blood count (CBC) checked in 1 week by your attending physician. Evaluation of your iron stores, B12 level, and folate level were normal during her hospital stay. 4. Atrial fibrillation Goals: Improve disease control, Prevent disease progress Instructions: Follow up as directed, Take meds as directed
[2017-03-07] MEDS ORDERED: LOPRESSOR25 MG PO (10:53)
[2017-03-07 14:25] VITALS: BP 120/54
--- NOTE | 2017-03-07 18:26 | DIAGNOSTIC IMAGING REPORT ---
REFERRING PHYSICIAN/PROVIDER: Dr. Morris CONSULTING DIRECTOR OF QUALITY IMPROVEMENT: Lynn Wynne MD PROCEDURE: Echocardiogram TECHNICAL QUALITY: fair INDICATION: atrial fib RHYTHM DURING PROCEDURE: afib with controlled rate and occasional PVC' INTERPRETATIONS: LEFT VENTRICLE: Normal LV size, and wall thickness; there is mild global hypokinesis. EF is 40-45%. MITRAL VALVE: Leaflets are normal; no regurgitation AORTIC VALVE: Leaflets are normal; no regurgitation PULMONIC VALVE: not visualized TRICUSPID VALVE: leaflets ae normal; there is mild-moderate central regurgitation. Estimated PA systolic pressure is 30 m hg assuming RA pressure of 5 mm Hg. CHAMBERS: Mild LA enlargement (volume index is 33 ml/m2). Mild RA enlargement GREAT VESSELS: Normal aortic root. IVC measures 1 cm diameter; appropriate respiratory collapse. IMPRESSION: 1. Afib with controlled rate. 2. Mild cardiomyopathy; EF is 40-45%; no focal wall motion abnormalities. 3. Mild LA and RA enlargement 4. No significant valvular abnormalities. No prior study available for comparison.
--- NOTE | 2017-03-07 18:26 | DIAGNOSTIC IMAGING REPORT ---
REFERRING PHYSICIAN/PROVIDER: Dr. Morris CONSULTING PROJECT CONSTRUCTION MANAGER: Lynn Wynne MD PROCEDURE: Echocardiogram TECHNICAL QUALITY: fair INDICATION: atrial fib RHYTHM DURING PROCEDURE: afib with controlled rate and occasional PVC' INTERPRETATIONS: LEFT VENTRICLE: Normal LV size, and wall thickness; there is mild global hypokinesis. EF is 40-45%. MITRAL VALVE: Leaflets are normal; no regurgitation AORTIC VALVE: Leaflets are normal; no regurgitation PULMONIC VALVE: not visualized TRICUSPID VALVE: leaflets ae normal; there is mild-moderate central regurgitation. Estimated PA systolic pressure is 30 m hg assuming RA pressure of 5 mm Hg. CHAMBERS: Mild LA enlargement (volume index is 33 ml/m2). Mild RA enlargement GREAT VESSELS: Normal aortic root. IVC measures 1 cm diameter; appropriate respiratory collapse. IMPRESSION: 1. Afib with controlled rate. 2. Mild cardiomyopathy; EF is 40-45%; no focal wall motion abnormalities. 3. Mild LA and RA enlargement 4. No significant valvular abnormalities. No prior study available for comparison.
== END 2017-03-07 14:52 | DRG 470 ==
LOC: ED SRH 21:18 → TRANS SRH 02-28 00:17 → ACUTE2 SRH 02-28 00:17 → TRANS SRH 02-28 00:17 → ACUTE2 SRH 02-28 02:56
PROVIDERS: Orthopaedic Surgery; ADMIT Internal Medicine
PROC: 0SRS0JA Replacement of Left Hip Joint, Femoral Surface with Synthetic Substitute, Uncemented, Open Approach (ICD-10-PCS; principal; 2017-02-28 18:30)
PROC: 30233N1 Transfusion of Nonautologous Red Blood Cells into Peripheral Vein, Percutaneous Approach (ICD-10-PCS; 2017-03-02)
PROC: 30233N1 Transfusion of Nonautologous Red Blood Cells into Peripheral Vein, Percutaneous Approach (ICD-10-PCS; 2017-03-03)
DX: S72.22XA Displaced subtrochanteric fracture of left femur, initial encounter for closed fracture (principal); W01.0XXA Fall on same level from slipping, tripping and stumbling without subsequent striking against object, initial encounter; D62 Acute posthemorrhagic anemia; K70.30 Alcoholic cirrhosis of liver without ascites; K76.6 Portal hypertension; K72.90 Hepatic failure, unspecified without coma; I48.91 Unspecified atrial fibrillation; N40.1 Benign prostatic hyperplasia with lower urinary tract symptoms; N13.8 Other obstructive and reflux uropathy; R40.0 Somnolence; T40.2X5A Adverse effect of other opioids, initial encounter; G62.1 Alcoholic polyneuropathy; I10 Essential (primary) hypertension; Y93.E9 Activity, other interior property and clothing maintenance; Y92.009 Unspecified place in unspecified non-institutional (private) residence as the place of occurrence of the external cause; Y99.8 Other external cause status; F10.21 Alcohol dependence, in remission; D49.2 Neoplasm of unspecified behavior of bone, soft tissue, and skin; Z95.828 Presence of other vascular implants and grafts; Z79.891 Long term (current) use of opiate analgesic